=== PATIENT | female | born 1990 | race Caucasian/White ===

== ENCOUNTER 2023-07-19 11:50 | Emergency (ER) | payer OTHER, SELFPAY ==
[2023-07-19 12:02] VITALS: BP 100/61; PULSE 96; RESP 18; TEMP 36.9; O2SAT 98
[2023-07-19 12:05] VITALS: BP 100/61; PULSE 96; RESP 18; TEMP 36.9; O2SAT 98
--- NOTE | 2023-07-19 12:16 | ED.URI ---
HPI - URI/Sore Throat General Chief Complaint: Upper Respiratory Infection Stated Complaint: Cold symptoms Time Seen by Provider: 07/19/23 12:10 Source: patient and RN notes reviewed Mode of arrival: ambulatory Limitations: no limitations History of Present Illness HPI Narrative: Patient presents today complaining of sore throat with white rhinorrhea since yesterday. Denies any additional symptoms to include fever, cough, congestion, shortness of breath, difficulty swallowing. She currently rates her pain 3/10 and has been taking ibuprofen with mild relief. Denies any known sick contacts. Related Data Allergies Allergy/AdvReac Type Severity Reaction Status Date / Time sulfamethoxazole Allergy Rash Verified 07/19/23 12:04 [From Bactrim] trimethoprim [From Bactrim] Allergy Rash Verified 07/19/23 12:04 Review of Systems Review of Systems: CONSTITUTIONAL: Denies body aches, fever, chills, or sweats. EYES: Denies visual changes, redness, or discharge. ENT: Denies congestion, or otalgia.+ rhinorrhea, sore throat CARDIOVASCULAR: Denies chest pain, palpitations, or edema. RESPIRATORY: Denies cough or dyspnea. GASTROINTESTINAL: Denies abdominal pain, nausea, vomiting, or diarrhea. GENITOURINARY: Denies dysuria or hematuria. SKIN: Denies rash, itching, or wounds. MUSCULOSKELETAL: Denies back pain, joint pain, or myalgia. NEUROLOGIC: Denies headache, numbness, tingling, or weakness. PSYCH: Denies depression or anxiety. PMFSH Comments At time of signature, I have reviewed and agree with nursing past medical, surgical, social and family history unless otherwise noted. Please see nursing chart for further information. There is no relevant family history pertinent to the presenting complaint Exam Narrative: GENERAL: Well-appearing, well-nourished, and in no acute distress. HEAD: Normocephalic, atraumatic. EYES: EOMI. No redness or drainage. Conjunctivae normal. ENT: Mucous membranes pink and moist. Nares clear. No rhinorrhea. TMs normal bilaterally. Throat erythematous with mild edema. No exudate. Uvula midline. NECK: Normal AROM. Supple. No lymphadenopathy. CHEST: No respiratory distress. Clear to auscultation. HEART: Regular rate and rhythm. No murmur appreciated. EXTREMITIES: Normal range of motion. No edema. SKIN: Warm, dry, no rash. Capillary refill normal. Normal skin turgor. NEURO: No focal deficits. Alert and oriented x3. Gait steady. PSYCH: Normal affect. No signs of depression or anxiety. Course Course Level of Care: Express Care Visit Vital Signs Vital signs: Vital Signs Temperature 98.4 F 07/19/23 12:02 Pulse Rate 96 07/19/23 12:02 Respiratory Rate 18 07/19/23 12:02 Blood Pressure 100/61 07/19/23 12:02 Pulse Oximetry 98 07/19/23 12:02 Oxygen Delivery Room Air 07/19/23 12:02 Temperature 98.4 F 07/19/23 12:05 Pulse Rate 96 07/19/23 12:05 Respiratory Rate 18 07/19/23 12:05 Blood Pressure 100/61 07/19/23 12:05 Pulse Oximetry 98 07/19/23 12:05 Oxygen Delivery Room Air 07/19/23 12:05 Reviewed MDM - URI/Sore Throat MDM Narrative Medical decision making narrative: Rapid strep positive. Prescription for amoxicillin sent to pharmacy. Anticipatory guidance given. Differential Diagnosis Differential diagnosis: Likely upper respiratory infection, viral infection, pharyngitis and other (Strep throat) Lab Data Attestation: I reviewed the patient's lab results. Lab results narrative: Rapid strep positive Critical Care Time Critical Care Time Critical Care Time: No Discharge Plan Discharge Clinical Impression: Strep throat Patient Disposition: Home, Self-Care Condition: Stable Instructions: Antibiotic Form, Strep Throat (DC) Additional Instructions: You have tested positive for strep throat. Please take the amoxicillin as prescribed until gone. You will be contagious for 24 hours after starting the antibiotic. Take Tyleno
== END 2023-07-19 12:22 | disposition home or self-care (01) ==
PROVIDERS: Emergency Provider Nurse Practitioner; PCP Hospitalist
DX: J02.0 Streptococcal pharyngitis (principal)
CPT/HCPCS: 87880; 99213; G0463

== ENCOUNTER 2024-08-21 10:09 | Emergency (ER) | payer OTHER, BC, SELFPAY ==
[2024-08-21 10:24] VITALS: BP 117/56; PULSE 82; RESP 18; TEMP 37.2; O2SAT 97
--- NOTE | 2024-08-21 10:27 | ED.URI ---
HPI - URI/Sore Throat General Chief Complaint: Upper Respiratory Infection Stated Complaint: cough Source: patient Mode of arrival: ambulatory Limitations: no limitations History of Present Illness HPI Narrative: 33-year-old female presented for complaint of productive cough for 2 months. Endorses nasal congestion and drainage. That she has completed 2 telehealth visits, during which she was prescribed Tessalon Perles, albuterol inhaler, and ipratropium nasal spray. She has been taking [id number] DayQuil and NyQuil and Delsym. Patient denies shortness of breath, wheezing, nausea, vomiting, diarrhea, fevers or lethargy. Related Data Home Medications ?Medication ?Instructions ?Recorded ?Confirmed ?Last Taken ?Type albuterol sulfate 90 mcg/actuation inhalation 08/21/24 Unknown History aerosol inhaler benzonatate 200 mg capsule mg PO 08/21/24 Unknown History ipratropium bromide 42 mcg (0.06 intranasal 08/21/24 Unknown History %) nasal spray norethindrone (contraceptive) 0.35 mg 08/21/24 Unknown History mg tablet Allergies Allergy/AdvReac Type Severity Reaction Status Date / Time sulfamethoxazole (From Allergy Rash Verified 08/21/24 10:33 Bactrim) trimethoprim (From Bactrim) Allergy Rash Verified 08/21/24 10:33 Review of Systems Review of Systems: CONSTITUTIONAL: Denies body aches, fever, chills, or sweats. EYES: Denies visual changes, redness, or discharge. ENT: Denies rhinorrhea, congestion, sore throat, or otalgia. CARDIOVASCULAR: Denies chest pain, palpitations, or edema. RESPIRATORY: Reports cough, denies sob, wheezing. GASTROINTESTINAL: Denies abdominal pain, nausea, vomiting, or diarrhea. SKIN: Denies rash, itching, or wounds. MUSCULOSKELETAL: Denies back pain, joint pain, or myalgia. NEUROLOGIC: Denies headache, numbness, tingling, or weakness. PSYCH: Denies depression or anxiety. All systems reviewed & are unremarkable except as noted in HPI and below [facility] Comments At time of signature, I have reviewed and agree with nursing past medical, surgical, social and family history unless otherwise noted. Please see nursing chart for further information. There is no relevant family history pertinent to the presenting complaint Exam Narrative: GENERAL: Well-appearing, in no acute distress. EYES: EOMI. No redness or drainage. Conjunctivae normal. ENT: Mucous membranes pink and moist. No rhinorrhea. TMs normal bilaterally with clear effusion. Throat normal. Uvula midline. NECK: Normal AROM. Supple. CHEST: No respiratory distress. Lungs clear to all angel. HEART: Regular rate and rhythm. No murmur appreciated. SKIN: Warm, dry, no rash. Capillary refill normal. Normal skin turgor. NEURO: Alert and oriented x3. Gait steady. PSYCH: Normal affect. Course Course Emergency Course: Patient is aware of diagnosis, understands and agrees to treatment plan. Anticipatory guidance given. Patient agrees to follow-up as directed and is aware of reasons to seek care at the emergency department. Portions of this record may have been created with voice recognition software Level of Care: Express Care Visit Vital Signs Vital signs: Vital Signs Temperature 98.9 F 08/21/24 10:24 Pulse Rate 82 08/21/24 10:24 Respiratory Rate 18 08/21/24 10:24 Blood Pressure 117/56 L 08/21/24 10:24 Pulse Oximetry 97 08/21/24 10:24 Oxygen Delivery Room Air 08/21/24 10:24 Temperature 98.9 F 08/21/24 10:24 Pulse Rate 82 08/21/24 10:24 Respiratory Rate 18 08/21/24 10:24 Blood Pressure 117/56 L 08/21/24 10:24 Pulse Oximetry 97 08/21/24 10:24 Oxygen Delivery Room Air 08/21/24 10:24 MDM - URI/Sore Throat MDM Narrative Medical decision making narrative: Discussed physical exam findings. Patient declines chest x-ray at this time. Reviewed prescription. She will continue the previously prescribed inhaler and Tessalon Perles. Advised supportive measures and signs/symptoms to go to the ER. Pt is appropriate for outpt treatment and f/u. Differential Diagnosis Differential diagnosis: Likely upper respiratory infection, sinusitis, viral infection, bronchitis, pharyngitis and other (Angioedema, perforation, asthma, pneumonia, PE, tension pneumothorax, cardiac tamponade DC, pericarditis, pleural effusion, CHF, bronchitis, cardiac arrhythmia) Discharge Plan Discharge Clinical Impression: Bronchitis Patient Disposition: Home Condition: Stable Instructions: Antibiotic Form, Acute Bronchitis (ED) Additional Instructions: Take medication as directed Recommendations: Flonase spray and Zyrtec (or Claritin/Devora) if you have nasal congestion over the counter Cough syrup may cause drowsiness; avoid driving or take it at night time. Tylenol every 8 hours as needed for pain Symptomatic treatment includes: rest, fluids, and increase humidity of the air at home. Follow up with your primary care provider as needed in 1 week Go to the ER for worsening symptoms or concerns Patient Language: Estonian Prescriptions: New amoxicillin-pot clavulanate 875-125 mg tablet 1 tablet PO Q12H 7 Days Qty: 14 0RF No Action benzonatate 200 mg capsule PO albuterol sulfate 90 mcg/actuation HFA aerosol inhaler INHALATION ipratropium bromide 42 mcg (0.06 %) spray,non-aerosol INTRANASAL norethindrone (contraceptive) 0.35 mg tablet Follow-up/Referrals: Melissa,Masoud James Jr., MD [Primary Care Provider] - Time of Disposition: 10:37
--- OUTSIDE RECORDS SUMMARY | 2024-08-21 10:52 | XMS_ITS | Data Portability ---
Author Organization [facility] [employer] , [facility] Address [address] [place] [address] Assessment Encounter Date Assessment Date Assessment LastModified by Organization Details LastModified Time 08/13/2024 08/13/2024 Ddx: Acute Bronchitis, Chronic Bronchitis, Cough, Bronchospasm A: Acute bronchitis/broncho spasms determined to be the etiology of current respiratory symptoms. Patient without symptoms suggestive of bacterial etiology at this time. P: Provided counseling/treatme nt recommendations as noted below: Monitor for fever, SOB, wheezing, worsening breathing difficulty Medications prescribed: See Rx section Drug interactions: None If any medications were discussed (either prescription or uhsg-dik-ldrahbo), please review any potential side effects before taking the medication. If your symptoms get worse or do not improve, please call us back or seek in person care. We are available 25/09 OTC meds recommended: antihistamine to help dry up postnasal drip Antibiotic stewardship education Patient to be seen for repeat evaluation if symptoms worsen, counseled on red flag symptoms to indicate need for emergent follow up. Patient expressed understanding and agreement with treatment plan as outlined. [email or web address] Not available 08/13/2024 18:32:45 08/17/2024 08/17/2024 Ddx: Viral URI, Acute Bronchitis, Influenza, ABRS, COVID-19 A: Symptoms consistent with lower respiratory infection. Unable to rule out a bacterial etiology at this time. Advised to go to the nearest urgent care. P: Discussed expected course of viral URIs. Provided counseling/treatme nt recommendations as noted below: Go to the nearest urgent care for further work up and evaluation. Not available 08/17/2024 20:35:09 Plan of Treatment Reminders Order Date Submit Date Provider Last Modified By Organization Details Last Modified Time Details Appointments None recorded. Lab None recorded. Referral None recorded. Procedures None recorded. Surgeries None recorded. Imaging None recorded. Medication Orders albuterol sulfate HFA 90 mcg/actuati on aerosol inhaler 2024 [facility][id number], [address], [place], [place], [phone], 18:28:19 ipratropium bromide 42 mcg (0.06 %) nasal spray 2024 [facility] #[id number], [address], [place], [place], [phone], 18:29:34 benzonatate 200 mg capsule 2024 [facility] #[id number], [address], [place], [place], [phone], 18:29:53 Patient TargetsNo targets recorded. Patient Instructions Encounter Date Encounter Id Patient Instructions Last Modified By Organization Details Last Modified Time 08/13/2024 [id number] reactive airway disease: care instructions [email or web address] Not available 08/13/2024 18:28:08 bronchitis: care instructions [email or web address] Not available 08/13/2024 18:29:23 08/17/2024 [id number] [facility] work up and evaluation. Not available 08/17/2024 20:35:17 Reason for Referral None Reported. Problems No Known Problems Medical Equipment None Reported. Allergies Allergen ID Allergen Name Allergen Category Reaction Reaction Severity Criticality Documentation Date Start Date Code Code System Note Provider Name and Address Organization Details Recorded Time 603611 Bactrim medicatio n Not available Not available Not available 08/13/2024 [id number] RxNorm Not Available Included [facility] - [facility] 18:18:50 Medications Name Sig Start Date Stop Date Status Note LastModified by Organization Details LastModified Time benzonatat e 200 mg capsule Take 1 capsule 3 times a day by oral route as needed for 10 days, for cough. 2024 active NOT RECOMMEND ED in patient's less than 10 years of age Not Available Not Available Not Available albuterol sulfate HFA 90 mcg/actuat ion aerosol inhaler Inhale 2 puffs every 4-6 hours by inhalatio n route for 30 days. 2024 active Not Available Not Available Not Avai lable ipratropiu m bromide 42 mcg (0.06 %) nasal spray [place] 2 sprays twice a day by intranasa l route for 30 days. 2024 active Not Available Not Available Not Avai lable norethindr one active ADDED BY PATIENT: Not Available Not Available Not Available Vitals Date Recorded Body height Body mass index (BMI) Body weight Provider Name and Address Organization Details Last Updated DateTime 08/17/2024 162.56 cm 24.5 kg/m2 19612.71 g CHRIS Moise [address] [facility] [address], [place], [address], [place] - Included [facility] 08/17/2024 20:26:48 Social History None recorded. Functional Status Question Answer Note LastModified by Organizat ion Details LastModified Time How many times per week do you consume alcohol? Less than 1 time per week Information not available 08/13/2024 Do you use any illicit or recreational drugs? No Information not available 08/13/2024 Do you or have you ever used any other forms of tobacco or nicotine? No Information not available 08/13/2024 What is your level of alcohol consumption? Occasional Information not available 08/13/2024 Mental Status None recorded. Family History Nothing Reported. Medical History No medical history recorded. Gynecological HistoryNo gynecological history recorded. Obstetrics History GPAL:G 0 P 0 0 0 0 Past Encounters Encounter ID Performer Location Encounter Start Date Encounter Closed Date Diagnosis/Indication Diagnosis SNOMED-CT Code Diagnosis ICD10 Code Diagnosis Note [id number] CHRIS Menendez [facility] [address] [place] [address] 08/13/2024 18:19:50 08/13/2024 18:34:58 Bronchospasm 5667669 J98.01 Bronchitis 00917348 J40 [id number] CHRIS Moise [facility] [address] [place] [address] 08/17/2024 20:20:54 08/17/2024 20:36:58 Acute lower respiratory tract infection 219810110 J22 Health Concerns Section Related Observation LastModified by Organization Detai ls LastModified Time None Recorded Concern Status LastModified by Organization Details LastModified Time None Recorded Advance Directives Directive None Recorded Payers Insurance Date Sequence Insurance Name Policy Number Policy Nguyễn Covered Member ID Nguyễn Member ID Guarantor Name 08/13/2024 1 *SELF PAY* Jessi Grayson 08/18/2024 2 [facility] [id number] Hair Grayson [id number] Hair Grayson 08/13/2024 [employer] [id number] Hair Grayson [id number] Hair Grayson 08/13/2024 3 *SELF PAY* [id number] Hair Grayson [id number] Hair Grayson 08/18/2024 1 [facility] [id number] Hair Grayson [id number] Hair Grayson Notes Date Note Type Note Provider Name and Address Organization Details Recorded Time 08/13/2024 text/html Provider at the time of the visit is physically in the state of [place] Call connected, patient greeted. Patient name, , telephone number and location verified verbally with the patient. Telemedicine limitations reviewed, answered all questions the patient had about the telehealth interaction, and verbal consent obtained to treat.Pt is at home address listed in the chart at the time of the televisit.Pt consents to AI Clinical Scribe use for this televisit. Age & Gender: 33 y.o. Female CC: Persistent cough for one month HPI: The patient presents with a one-month history of a persistent productive cough, which started following what is believed to be a viral infection. The cough is most severe overnight into the morning and improves somewhat throughout the day. The patient reports no fever, malaise, fatigue, or headaches. Nasal congestion and post-nasal drip are minimal, but present. The patient denies any pain in the ears or sinuses and reports no previous diagnosis of chronic lung conditions such as asthma. A similar episode occurred last year following a viral infection and was treated as atypical pneumonia with Z-Nicholas, which resulted in improvement. Initially, the patient attempted to manage symptoms with tolb-get-fhvpnjl Delsym cough syrup and Afrin nasal spray, which were somewhat effective at alleviating congestion. The patient experiences increased coughing with activity such as movement and talking. CHRIS Menendez 1 [facility] [address] [place] [address], [phone], [facility] - Included [facility] 08/13/2024 18:32:48 08/17/2024 text/html Call connected, patient greeted. Patient name , location, and phone number confirmed. Verbal consent obtained to treat this patient via the telemedicine/video platform. Patient understands that there are limitations to my evaluation. Clinician attests that the clinician is physically located in the following state at the time of visit: [place] Onset and duration of symptoms: The patient reports that she has been experiencing a cough that started about a month ago. She states that she has been using an albuterol inhaler, Delsym, and ipratropium bromide. Symptoms:Fever (Tmax): NoNasal congestion: YesNasal discharge: YesPost nasal drip: YesCough: Yes- Productive with a Green CoughSore throat: NoEar pain/pressure: NoHeadache: YesChest pain: NoShortness of breath: NoWheezing: NoAdditional symptoms: OTC medications used: NoneRecent antibiotic use: NoRecent influenza: NoHistory of allergies, asthma, seasonal/allergic rhinitis: NoIf YES, medications used:History of past URIs, bronchitis, pneumonia: YesHistory of COPD: NoHistory of immunocompromise: NoHistory of COVID-19: UnsureKnown sick contacts: YesTobacco use / e-cig / vaping: No CHRIS Moise 1 [facility] [address], [place], [address], [facility] - Included [employer] 08/17/2024 20:35:36 OBGyn Episode No OBEpisode recorded.
--- OUTSIDE RECORDS SUMMARY | 2024-08-21 10:52 | XMS_ITS | Referral Summary ---
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 Local care instructions were given. Patient can follow back up as needed. Assessment & Plan (12/14/2017 12:45 PM CDT): Patient demonstrates a benign-appearing mucocele along the inner aspects of the right lower lip. It is chronic in nature. Definitive treatment consists of excisional biopsy. All questions were answered to what appeared to be patient's understanding and satisfaction. After the procedure was explained in full the potential risk, complications, benefits and alternatives patient would like to proceed. Patient will be scheduled in a timely fashion. Immunizations Immunization Administration Dates Next Due DTaP 5 Pertussis 09/12/2006 HPV, Quadrivalent 05/08/2007,10/17/2006,09/13/19 07 Hep B Vaccine 10/17/1993,1991,1991 Influenza, Trivalent, IM (MDV) 12/03/2017,2012 Influenza, Unspecified 12/12/2022,12/19/2019,03/2017,02/02/2013 MMR 10/23/1997,12/09/1992 Meningococcal MCV4P (Menactra) 09/23/2015 Tdap 05/15/2016,09/12/2006 Social History Tobacco Use Types Packs/Day Years Used Date Smoking Tobacco: Never Smokeless Tobacco: Never Alcohol Use Standard Drinks/Week Comments No 0 (1 standard drink = 0.6 oz pur e alcohol) AUDIT-C Answer Date Recorded Frequency of Alcohol Consumption Not on file 02/05/2023 Q2: How many drinks containi ng alcohol do you have on a typical day when you are drinking? Patient does not drink Frequency of Binge Drinking Not on file 06/2022 PHQ-2 Answer Date Recorded PHQ-2 Total Score (If total score is 3 or more points, staff should administer the PHQ-9) 0 02/05/2023 Comments No Sex and Gender Information Value Date Recorded Sex Assigned at Not on file Legal Sex Female 3:58 AM B[employer] SERVICE TEAM MEMBER Gender Identity Not on file Sexual Orientation Not on file Last Filed Vital Signs Vital Sign Reading Time Taken Comments Blood Pressure 100/64 02/05/2023 8:08 AM BODY SERVICE TEAM MEMBER Pulse 74 02/05/2023 8:08 AM BODY SERVICE TEAM MEMBER Temperature 36.6 C (97.9 F) 02/05/2023 8:08 AM BODY SERVICE TEAM MEMBER Respiratory Rate 16 02/05/2023 8:08 AM BODY SERVICE TEAM MEMBER Oxygen Saturation 97% 02/05/2023 8:08 AM BODY SERVICE TEAM MEMBER Inhaled Oxygen Concentration - - Weight 64 kg (141 lb) 02/05/2023 8:08 AM BODY SERVICE TEAM MEMBER Height 162.6 cm (5' 4) 02/05/2023 8:08 AM BODY SERVICE TEAM MEMBER Body Mass Index 24.2 02/05/2023 8:08 AM BODY SERVICE TEAM MEMBER Plan of Treatment Not on file Insurance [facility] CHOICE PLUS [facility] CHOICE PLUS Care Teams Compliance Analyst Relationship Specialty Start Date End Date Masoud Torres Jr., MD [address] [place] [id number] PCP - General Internal Medicine 02/05/23
--- OUTSIDE RECORDS SUMMARY | 2024-08-21 10:52 | XMS_ITS | Clinical Summary ---
Author Organization [facility] Address [address] [place] [address] Phone Care Team Providers Care Concrete Foreman Name Role Phone Stephanie Coelho MD Primary Care Provider [phone] Allergies Active Allergy Reactions Criticality Noted Date Comments Sulfamethoxazole-Trimethoprim Rash Low 2023 Medications vit-iron fumarate-fa (DIYA ) 28 mg iron- 800 mcg Tablet Take 1 Tablet by mouth daily. Active ondansetron (ZOFRAN ODT) 4 mg Tablet, Rapid Dissolve Place 1 Tablet (4 mg) under tongue every 6 hours as needed for Nausea/Emesis. Dissolve tablet on top of tongue, then swallow with saliva. 90 Tablet 1 4 Active Additional Information Patient not taking.Reported on 05/07/2024 metoclopramide HCl (REGLAN) 5 mg tablet Take 5 mg by mouth 4 times daily before meals and at bedtime. Active melatonin 5 mg Tablet Take 5 mg by mouth 1 time daily as needed. Active pantoprazole (Protonix) 20 mg Tablet, Delayed Release (E.C.)Indication s:Gastroesophage al reflux disease without esophagitis Take 1 Tablet (20 mg) by mouth daily. 30 Tablet 5 Active Additional Information Patient not taking.Reported on 05/07/2024 norethindrone, Contraceptive, (Destini-BE) 0.35 mg TabletIndication s:Contraceptive education Take 1 Tablet by mouth daily. 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 Overview (08/02/2023): Last Assessment & Plan: Needs ENT Encounters Date Type Department Care Team Description 08/20/2024 External Device Data [facility] ABSTRACTION Provider, Abstract 08/05/2024 External Device Data [facility] ABSTRACTION Provider, Abstract 07/24/2024 External Device Data [facility] ABSTRACTION Provider, Abstract 07/24/2024 External Device Data [facility]STRACTION Provider, Abstract 07/24/2024 External Device Data [facility]STRACTION Provider, Abstract 07/08/2024 External Device Data [facility]STRACTION Provider, Abstract 07/08/2024 External Device Data [facility] Provider, Abstract 07/08/2024 External Device Data [facility]STRACTION Provider, Abstract 06/24/2024 External Device Data [facility]STRACTION Provider, Abstract 06/03/2024 External Device Data [facility]STRACTION Provider, Abstract 06/03/2024 External Device Data [facility]STRACTION Provider, Abstract 05/21/2024 External Device Data [facility]STRACTION Provider, Abstract from Last 3 Months Immunizations Immunization Administration Dates Next Due (ABRYSVO)(60 YR UP/GA 32-36 WKS) RSV, BIVALENT, PROTEIN SUBUNIT RSVPREF, DILUENT RECONSTITUTED, 0.5 ML, PF 02/04/2024 (ADACEL/BOOSTRIX)(10 YR UP) TDAP VACCINE, 0.5ML, IM 01/11/2024,05/15/2016,09/12/2006 (DAPTACEL)(6 WKS-6 YRS) DIPH THERIA, TETANUS TOXOIDS, AND ACCELLULAR PERTUSSIS VACCINE (DTAP), 0.5ML, IM 09/12/2006 (GARDASIL)(9-45 YRS) HUMAN P APILLOMAVIRUS VACCINE, TYPES 6, 11, 16, 18, QUADRIVALENT (4VHPV), 3 DOSE, IM 05/08/2007,10/17/2006,09/12/2006 (M-M-R II/PRIORIX)(12 MO UP) MEASLES, MUMPS AND RUBELLA VIRUS VACCINE, 0.5 ML IM/SUBCUT 10/23/1997,12/09/1992 Hepatitis B Vaccine 10/17/1993,1991,1991 INFLUENZA VACCINE TRIVALENT MDCK, (6 MOS UP), 0.5ML (PF), IM 11/12/2023 Influenza Seasonal Unspecifi ed Formulation IM 12/03/2017,02/02/2013 Influenza, Unspecified Formulation 12/19/2019,,02/02/2013 Meningococcal Polysaccharide Vaccine SQ 09/23/19 16 Family History Medical History Relation Name Comments Cancer Father Damian skin Hypertension Father Damian Thyroid Disease Father Damian hypothyroid Heart Disease Maternal Grandfather Luis Heart Disease Maternal Grandmother Gladis Stroke Maternal Grandmother Gladis Migraines Mother Fanta Cancer Paternal Grandfather Jose Alfredo lung ca 2/2 tobacco use Depression Paternal Grandfather Jose Alfredo Heart Disease Paternal Grandfather Jose Alfredo Hypertension Paternal Grandfather Jose Alfredo Depression Paternal Grandmother Macrina Heart Disease Paternal Grandmother Macrina Hypertension Paternal Grandmother Macrina Lung Cancer Paternal Grandmother Macrina Relation Name Status Comments Father Damian Alive Maternal Grandfather Luis Maternal Grandmother Gladis Mother Fanta Alive Paternal Grandfather Jose Alfredo Paternal Grandmother Macrina Social History Tobacco Use Types Packs/Day Years Used Date Smoking Tobacco: Never Smokeless Tobacco: Never Tobacco Cessation:Counseling Given: Not Answered Alcohol Use Standard Drinks/Week Comments Not Currently 2 (1 standard drink = 0.6 oz pur e alcohol) rare Feeling Safe Answer Date Recorded Are you in a relationship wi th someone who hurts you emotionally and/or physically? 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 student Not on file Not on file Not on file Last Filed Vital Signs Vital Sign Reading Time Taken Comments Blood Pressure 108/72 05/07/2024 11:16 AM SCRUB WHEEL OPERATOR Pulse 74 03/27/2024 6:56 AM SCRUB WHEEL OPERATOR Temperature 36.7 C (98 F) 03/27/2024 6:56 AM SCRUB WHEEL OPERATOR Respiratory Rate 18 03/27/2024 6:56 AM SCRUB WHEEL OPERATOR Oxygen Saturation 99% 03/27/2024 6:56 AM SCRUB WHEEL OPERATOR Inhaled Oxygen Concentration - - Weight 68 kg (150 lb) 05/07/2024 11:16 AM SCRUB WHEEL OPERATOR Height 162.6 cm (5' 4) 05/07/2024 11:16 AM SCRUB WHEEL OPERATOR Body Mass Index 25.75 05/07/2024 11:16 AM SCRUB WHEEL OPERATOR Plan of Treatment Upcoming Encounters Date Type Department Care Team (Late st Contact Info) Description 10/02/2024 10:30 AM CDT Office Visit [facility] [address] [address] Tamara Bond MD [address] [place] [id number] Health Maintenance Due Date Last Done Comments COVID-19 Vaccine (2023-2 5 season) 2023 03/12/2020, 02/20/2020 PAP SMEAR 05/08/2027 05/07/2024, 11/03, 06/18/2020, Additional history exists CERVICAL CANCER SCREENING 05/07/2029 HPV/Cotest (21-29) 05/07/2029 05/07/2024, 0 11/13/2022, 08/22/2016, Additional history exists HPV/Cotest (30-65) 05/07/2029 05/07/2024, 0 11/13/2022, 08/22/2016, Additional history exists DTAP/TDAP/TD VACCINES (4 - T d or Tdap) 01/10/2034 01/11/2024, 05/15/2016, 09/12/2006, Additional history exists HEPATITIS B VACCINES Completed 10/17/1993, 1991, 1991 HPV VACCINES Completed 05/08/2007, 10/03, 09/12/2006, Additional history exists INFLUENZA VACCINE Completed 11/12/2023, , 12/03/2017, Additional history exists Procedures Procedure Name Priority Date/Time Associated Diagnosis Comments CERV/VAG CYTO AGE BASED SCREEN PAP Routine 05/07/2024 11:41 AM SCRUB WHEEL OPERATOR Screening for cervical cancer Screening for HPV (human papillomavirus) from Last 3 Months or Most Recently Relevant to Health Maintenance Results * CERV/VAG CYTO AGE BASED SCREEN PAP (05/07/2024 11:41 AM SCRUB WHEEL OPERATOR) COMMENT (PAP): [facility] [place] Comment: This order for age-based cervical cancer and STI screening follows ACOG guidelines(PB 168, 140, SGV543). See individual assays for performing site location. CLINICAL INFORMATION [facility] [place] Comment:None given LAST MENSTRUAL PERIOD [facility] [place] Comment:NONE GIVEN PREV PAP: [facility] [place] Comment:NONE GIVEN PREV BX: [facility] [place] Comment:NONE GIVEN SOURCE [facility] [place] Comment:Endocervix ADEQUACY: [facility] [place] Comment: Satisfactory for evaluation. Endocervical/transformation zone component present. Age and/or menstrual status not provided PAP INTERP [facility] [place] Comment: Cytology Results: Negative for intraepithelial lesion or malignancy. COMMENT (PAP TEST) [facility] [place] Comment: This Pap test has been evaluated with computer assisted technology. RULES EXAMINER: Kendy Portillo Comment: LMT, CT(ASCP) CT screening location: [place] [address] [address] [place] [address] REVIEW RULES EXAMINER: Michael Portillo Comment: MVB, CT(ASCP) CT Screening Location: [place] [address] [address] [place] [address] EXPLANATORY NOTE [facility] [place] Comment: EXPLANATORY NOTE: The Pap is a screening test for cervical cancer. It is not a diagnostic test and is subject to false negative and false positive results. It is most reliable when a satisfactory sample, regularly obtained, is submitted with relevant clinical findings and history, and when the Pap result is evaluated along with historic and current clinical information. HPV E6/E7 Not Detected Not Detected [employer] Comment: Methodology: Signal Repairer-Mediated Amplification This assay detects E6/E7 viral messenger RNA (mRNA) from 14 high-risk HPV types (16,18,31,33,35,39,45,51,52,56,58,59,66,68). Cervical sources are required for HPV testing. If a vaginal source from a patient who has had a total hysterectomy with removal of cervix was submitted, please contact the testing laboratory for alternative testing options. For additional information, please refer to http://education.Viblio/faq/PWG429k9 (This link if provided for information/ educational purposes only.) Test Performed at: [facility] [address] [place] [address] [facility] SWAB OF ENDOCERVIX / Unknown 05/07/2024 11:41 AM SCRUB WHEEL OPERATOR 05/08/2024 1:15 AM SCRUB WHEEL OPERATOR Brian Ron MD PATHOLOGY/CYTOLOGY ORDERABLES Final Result [facility] [phone] [facility] [address] [place] [address] from Last 3 Months or Most Recently Relevant to Health Maintenance Insurance [facility] [id number] RX [employer] RX Member Subscriber Plan / Payer (Ef fective 2024-Present) Name:Shonda Grayson Relation to Subscriber:Not on file Name:Shonda Grayson Subscriber ID:Not on file Date of :1990 Payer ID:Not on file Group ID:[id number] Type:RX Commercial Address: [address] Advance Directives For more information, please contact: [phone] * Full Code (Latest Code Status on File) Date Activated Date Inactivated Comments 03/25/2024 6:04 AM 03/27/2024 4:39 PM * Full Code Date Activated Date Inactivated Comments 03/24/2024 4:21 PM 03/25/2024 6:03 AM * Full Code Date Activated Date Inactivated Comments 02/15/2024 2:36 PM 02/15/2024 6:35 PM * Full Code Date Activated Date Inactivated Comments 12/26/2023 4:38 AM 12/26/2023 10:24 AM Care Teams Concrete Foreman Relationship Specialty Start Date End Date Stephanie Coelho MD PCP - General Internal Medicine 05/06/13
--- OUTSIDE RECORDS SUMMARY | 2024-08-21 10:52 | XMS_ITS | Encounter Summary ---
Author Organization [facility] Address [address] [place] [address] Care Team Providers Care Retail Sales Representative Name Role Phone Stephanie Coelho MD Primary Care Provider [phone] Encounter Details Date Type Department Care Team (Late st Contact Info) Description 08/20/2024 External Device Data [facility] ABSTRACTION Provider, Abstract NO ADDRESS ON FILE Social History Tobacco Use Types Packs/Day Years Used Date Smoking Tobacco: Never Smokeless Tobacco: Never Alcohol Use Standard Drinks/Week Comments Not Currently [...] file Not on file Not on file documented as of this encounter Plan of Treatment Upcoming Encounters Date Type Department Care Team (Late st Contact Info) Description 10/02/2024 10:30 AM CDT Office Visit [facility] [address] [place] [address] Tamara Bond MD [address] [place] [phone] documented as of this encounter Visit Diagnoses Not on filedocumented in this encounter Care Teams Retail Sales Representative Relationship Specialty Start Date End Date Stephanie Coelho MD PCP - General Internal Medicine 05/06/13 documented as of this encounter
--- OUTSIDE RECORDS SUMMARY | 2024-08-21 10:52 | XMS_ITS | Clinical Summary ---
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 Local care [...] 10/23/1997,12/09/1992 Meningococcal MCV4P (Menactra) 09/23/2015 Tdap 05/15/2016,09/12/2006 Medical History Medical History Date Comments Cyst of salivary gland Family History Medical History Relation Name Comments Glaucoma Father Family history of glaucoma - (Added by TW Conv) Hyperlipidemia Father High choleste rol - (Added by TW Conv) Hypertension Father Family history of hypertension - (Added by TW Conv) Hypothyroidism Father Family histor y of hypothyroidism - (Added by TW Conv) Skin cancer Father Family history of skin cancer - (Added by TW Conv) Glaucoma Mother Family history of glaucoma - (Added by TW Conv) Hyperlipidemia Mother High choleste rol - (Added by TW Conv) Hypertension Mother Family history of hypertension - (Added by TW Conv) Hypothyroidism Mother Family histor y of hypothyroidism - (Added by TW Conv) Irritable bowel syndrome Mother Fam raman history of irritable bowel syndrome - (Added by TW Conv) Skin cancer Mother Family history of skin cancer - (Added by TW Conv) Glaucoma Sister Family history of glaucoma - (Added by TW Conv) Relation Name Status Comments Father Alive Mother Alive Sister Social History Tobacco Use Types Packs/Day Years [...] you are drinking? Patient does not drink 3 Frequency of Binge Drinking Not on file 06/2022 PHQ-2 Answer Date Recorded PHQ-2 Total Score (If total score is 3 or more points, staff should administer the PHQ-9) 0 02/05/2023 Comments No Sex and Gender Information Value Date Recorded Sex Assigned at Not on file Legal Sex Female 3:58 AM TRANSPORT MANAGER Gender Identity Not on file Sexual Orientation Not on file Obstetrics History Last Filed Vital Signs Vital Sign Reading Time Taken Comments Blood Pressure 100/64 02/05/2023 8:08 AM TRANSPORT MANAGER Pulse 74 02/05/2023 8:08 AM TRANSPORT MANAGER Temperature 36.6 C (97.9 F) 02/05/2023 8:08 AM TRANSPORT MANAGER Respiratory Rate 16 02/05/2023 8:08 AM TRANSPORT MANAGER Oxygen Saturation 97% 02/05/2023 8:08 AM TRANSPORT MANAGER Inhaled Oxygen Concentration - - Weight 64 kg (141 lb) 02/05/2023 8:08 AM TRANSPORT MANAGER Height 162.6 cm (5' 4) 02/05/2023 8:08 AM TRANSPORT MANAGER Body Mass Index 24.2 02/05/2023 8:08 AM TRANSPORT MANAGER Plan of Treatment Health Maintenance Due Date Last Done Comments Cervical Cancer Screening 1990 Hepatitis C Screening 1990 Covid-19 Vaccine ( season) 2023 03/12/2020, 02/20/2020 Depression Screening 02/06/2024 02/05/2023 Regular Well Visit/Exam 18-64 02/06/2024 02/05/2023 Influenza Vaccine (Season Ended) 2024 12/12/2022, 12/19/2019, 12/03/2017, Additional history exists DTaP/Tdap/Td Vaccine (4 - Td or Tdap) 05/15/2026 05/15/2016, 09/12/2006, 09/12/2006 Hepatitis B Screening Completed 10/17/1993 , 1991, 1991 HPV Vaccines Completed 05/08/2007, 10/03, 09/12/2006 Pneumococcal vaccine <65 Aged Out No longer eligible based on patient's age to complete this topic Varicella Vaccines Discontinued Insurance [facility] Address: [address] [address] [place] [address] [facility] [place]: [place] [address] Care Teams Straight Line Press Setter Relationship Specialty Start Date End Date Masoud Torres Jr., MD [address] [place] [id number] PCP - General Internal Medicine 02/05/23
== END 2024-08-21 10:25 | disposition home or self-care (01) ==
PROVIDERS: Emergency Provider Nurse Practitioner Family; PCP Hospitalist
DX: J40 Bronchitis, not specified as acute or chronic (principal)
CPT/HCPCS: 99213; G0463

== ENCOUNTER 2024-11-25 09:33 | Emergency (ER) | payer BC, OTHER, SELFPAY ==
[2024-11-25 09:38] VITALS: BP 105/64; PULSE 64; RESP 18; TEMP 36.3; O2SAT 99
--- NOTE | 2024-11-25 10:02 | ED_ITS ---
HPI - URI/Sore Throat General Chief Complaint: Upper Respiratory Infection Stated Complaint: Cough Time Seen by Provider: 11/25/24 09:50 Source: patient and RN notes reviewed Mode of arrival: ambulatory Limitations: no limitations History of Present Illness HPI Narrative: 34-year-old female presents Express Care complaining of upper respiratory symptoms and cough for the last 2-3 weeks. Patient reports productive cough, runny nose, congestion, nasal drainage. Patient denies any fevers, body aches, chills, sore throat, nausea, vomiting, chest pain, difficulty breathing, abdominal pain, diarrhea, or any other symptoms. Patient has been using [id number]-[id number] cold and flu medication without relief. Patient says symptoms have been persistent and not improving. Related Data Home Medications ?Medication ?Instructions ?Recorded ?Confirmed ?Last Taken ?Type norethindrone (contraceptive) 0.35 mg 08/21/24 Unknow n History mg tablet Allergies Allergy/AdvReac Type Severity Reaction Status Date / Time sulfamethoxazole (From Allergy Rash Verified 11/25/24 09:37 Bactrim) trimethoprim (From Bactrim) Allergy Rash Verified 11/25/24 09:37 Review of Systems Review of Systems: CONSTITUTIONAL: Denies fever, chills, or sweats. EYES: Denies visual changes, redness, or discharge. ENT: Positive for rhinorrhea, congestion. Negative for sore throat, or otalgia. CARDIOVASCULAR: Denies chest pain, palpitations, or edema. RESPIRATORY: Positive for cough. Negative for wheezing or Dyspnea. GASTROINTESTINAL: Denies abdominal pain, nausea, vomiting, or diarrhea. GENITOURINARY: Denies dysuria or hematuria. SKIN: Denies rash or itching. MUSCULOSKELETAL: Denies back pain, joint pain, or myalgia. NEUROLOGIC: Denies headache, numbness, or weakness. PSYCHIATRIC: Denies anxiety or depression. All other systems reviewed are negative, except as documented in HPI. PMFSH Comments At the time of my signature, I reviewed and agree with the nursing past medical, surgical, social, and family history. There is no relevant family history pertinent to the patient complaint. Exam Narrative: GENERAL: This is a well-nourished, well-developed adult, in no apparent distress. They are non ill-appearing, nontoxic appearing. HEAD: normocephalic, atraumatic. EYES: Sclera clear/white. Conjunctiva normal. Vision is grossly intact. Extraocular movements intact EARS: External ears normal, auditory canals clear and without drainage, TMs normal without perforation. Hearing grossly intact. NOSE: External nose normal with no obvious nasal discharge, nasal turbinates erythematous with exudate present., no rhinorrhea. THROAT: Mucous membranes moist, posterior pharynx boggy without erythema. Uvula midline. Postnasal drip present. NECK: Neck supple, non-tender without lymphadenopathy, masses or thyromegaly. CARDIOVASCULAR: Regular rate and rhythm without murmurs, gallops, or rubs. RESPIRATORY: Clear to auscultation. Breath sounds equal bilaterally. No wheezes, rales, or rhonchi. SKIN: warm, Dry, intact with no suspicious lesions or rash, good texture and turgor. NEURO: awake, alert, and oriented to person, place and time. There were no obvious focal neurologic abnormalities. EXTREMITIES: No joint tenderness, effusion, or edema noted. Course Course Emergency Course: Portions of this record may have been created with voice recognition software Level of Care: Express Care Visit Vital Signs Vital signs: Vital Signs Temperature 97.4 F L 11/25/24 09:38 Pulse Rate 64 11/25/24 09:38 Respiratory Rate 18 11/25/24 09:38 Blood Pressure 105/64 11/25/24 09:38 Pulse Oximetry 99 11/25/24 09:38 Oxygen Delivery Room Air 11/25/24 09:38 Temperature 97.4 F L 11/25/24 09:38 Pulse Rate 64 11/25/24 09:38 Respiratory Rate 18 11/25/24 09:38 Blood Pressure 105/64 11/25/24 09:38 Pulse Oximetry 99 11/25/24 09:38 Oxygen Delivery Room Air 11/25/24 09:38 Reviewed MDM - URI/Sore Throat MDM Narrative Medical decision making narrative: Given patient's length of symptoms likely she has developed a bacterial sinusitis. Will treat with Augmentin. Discussed physical exam findings. Advised supportive measures and signs/symptoms to go to the ER. Pt is appropriate for outpt treatment and f/u. Differential Diagnosis Differential diagnosis: Likely upper respiratory infection, sinusitis, viral infection and bronchitis Critical Care Time Critical Care Time Critical Care Time: No Discharge Plan Discharge Clinical Impression: Sinusitis Qualifiers: Sinusitis location: unspecified location Chronicity: acute Recurrence: non-re current Qualified Code(s): J01.90 - Acute sinusitis, unspecified Patient Disposition: Home Condition: Stable Instructions: Antibiotic Form, Sinusitis (ED) Additional Instructions: Take the antibiotics as directed and complete the course even if you start to feel better. You may use a Neti pot saline rinse 3 times a day with lukewarm distilled water Tylenol ibuprofen as needed for pain or fevers. You may take ibuprofen 600 mg to 800 mg every 6-8 hours. Do not exceed more than 800 mg of ibuprofen per dose. Do not exceed more than 3200 mg ibuprofen in a day. You may take up to 1000 mg Tylenol every 6-8 hours. Do not exceed 1000 mg per dose, do exceed more than 4000 mg of Tylenol in a day. Use a humidifier or vaporizer at night. Drink plenty of water. 8-10 glasses per day. Use flonase 2 times per day for 5 days then as needed Take mucinex 2 times per day and be sure to take with 8oz of water. Follow up with Primary provider in 3-5 days Please go to the ER if he develops any difficulty breathing, chest pains, nausea, vomiting, worsening symptoms, or any other concerns Patient Language: Vietnamese Prescriptions: New amoxicillin-pot clavulanate 875-125 mg tablet 1 tablet PO Q12H 7 Days Qty: 14 0RF No Action norethindrone (contraceptive) 0.35 mg tablet Follow-up/Referrals: Melissa,Masoud James Jr., MD [Primary Care Provider, Unknown] Time of Disposition: 09:57
--- OUTSIDE RECORDS SUMMARY | 2024-11-25 10:18 | XMS_ITS | Clinical Summary ---
Author Organization 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 Overview (08/02/2023): Last Assessment & Plan: Needs ENT Encounters Date Type Department Care Team Description 11/11/2024 External Device Data [facility] ABSTRACTION Provider, Abstract 11/04/2024 External Device Data [facility] ABSTRACTION Provider, Abstract 11/04/2024 External Device Data [facility]STRACTION Provider, Abstract 10/21/2024 External Device Data [facility]CTION Provider, Abstract 10/21/2024 External Device Data [facility]STRACTION Provider, Abstract 09/17/2024 External Device Data [facility] ABSTRACTION Provider, Abstract 08/26/2024 External Device Data [facility]STRACTION Provider, Abstract 08/26/2024 External Device Data [facility] ABSTRACTION Provider, Abstract 08/26/2024 External Device Data [facility] ABSTRACTION Provider, Abstract [...] Comments Blood Pressure 108/72 05/07/2024 11:16 AM MEDICAL DOCTOR NUCLEAR MEDICINE Pulse 74 03/27/2024 6:56 AM MEDICAL DOCTOR NUCLEAR MEDICINE Temperature 36.7 C (98 F) 03/27/2024 6:56 AM MEDICAL DOCTOR NUCLEAR MEDICINE Respiratory Rate 18 03/27/2024 6:56 AM MEDICAL DOCTOR NUCLEAR MEDICINE Oxygen Saturation 99% 03/27/2024 6:56 AM MEDICAL DOCTOR NUCLEAR MEDICINE Inhaled Oxygen Concentration - - Weight 68 kg (150 lb) 05/07/2024 11:16 AM MEDICAL DOCTOR NUCLEAR MEDICINE Height 162.6 cm (5' 4) 05/07/2024 11:16 AM MEDICAL DOCTOR NUCLEAR MEDICINE Body Mass Index 25.75 05/07/2024 11:16 AM MEDICAL DOCTOR NUCLEAR MEDICINE Plan of Treatment Health Maintenance Due Date Last Done Comments INFLUENZA VACCINE (#1) 2024 , 12/20/2022, 12/03/2017, Additional history exists COVID-19 Vaccine (2024-2 6 season) 2024 03/12/2020, 02/20/2020 PAP SMEAR 05/08/2027 05/07/2024, 11/03, [...] Completed 05/08/2007, 10/03, 09/12/2006, Additional history exists Procedures Procedure Name Priority Date/Time Associated Diagnosis Comments CERV/VAG CYTO AGE BASED SCREEN PAP Routine 05/07/2024 11:41 AM MEDICAL DOCTOR NUCLEAR MEDICINE Screening for cervical cancer Screening for HPV (human papillomavirus) from Last 3 Months or Most Recently Relevant to Health Maintenance Results * CERV/VAG CYTO AGE BASED SCREEN PAP (05/07/2024 11:41 AM MEDICAL DOCTOR NUCLEAR MEDICINE) COMMENT (PAP): [facility] [place] Comment: This order for age-based cervical cancer and STI screening follows ACOG guidelines(PB 168, 140, MBV347). See individual assays for performing site location. CLINICAL INFORMATION [facility] [place] Comment:None given LAST MENSTRUAL PERIOD [facility] [place] Comment:NONE GIVEN PREV PAP: [facility] [place] Comment:NONE GIVEN PREV BX: [facility] Comment:NONE GIVEN SOURCE [facility] [place] Comment:Endocervix ADEQUACY: [facility] Comment: Satisfactory for evaluation. Endocervical/transformation zone component present. Age and/or menstrual status not provided PAP INTERP [facility] [place] Comment: Cytology Results: Negative for intraepithelial lesion or malignancy. COMMENT (PAP TEST) [facility] Comment: This Pap test has been evaluated with computer assisted technology. FRAME ALIGNER: Qu est Laurence [place] Comment: LMT, CT(ASCP) CT screening location: [place] [address] [place] [address] REVIEW FRAME ALIGNER: [facility] [place] Comment: MVB, CT(ASCP) CT Screening Location: [place] [address] [place] [address] EXPLANATORY NOTE Que ihiji Laurence [place] Comment: EXPLANATORY NOTE: The Pap is a [...] information. HPV E6/E7 Not Detected Not Detected [facility] [place] Comment: Methodology: Cement Breaker-Mediated Amplification This assay detects E6/E7 viral messenger RNA (mRNA) from 14 high-risk HPV types (16,18,31,33,35,39,45,51,52,56,58,59,66,68). Cervical sources are required for HPV testing. If a vaginal source from a patient who has had a total hysterectomy with removal of cervix was submitted, please contact the testing laboratory for alternative testing options. For additional information, please refer to [email or web address]/faq/YWK755y1 (This link if provided for information/ educational purposes only.) Test Performed at: [facility] [address] [place] [address] [facility] Genital SWAB OF ENDOCERVIX / Unknown 05/07/2024 11:41 AM MEDICAL DOCTOR NUCLEAR MEDICINE 05/08/2024 1:15 AM MEDICAL DOCTOR NUCLEAR MEDICINE us Brian Ron MD PATHOLOGY/CYTOLOGY ORDERABLES Final Result [facility] [phone] [facility] [address] [place] [address] from Last 3 Months or Most Recently Relevant to Health Maintenance Insurance [facility] OPT[employer] PPO [id number] RX [employer] RX Member Subscriber Plan / Payer (Ef fective 2024-Present) Name:Shonda Grayson Relation to Subscriber:Not on file Name:Shonda Grayson Subscriber ID:Not on file Date of :1990 Payer ID:Not on file Group ID:[id number] Type:RX Commercial Address: [address] Advance Directives For more information, please contact: [phone] * Full Code (Latest Code Status on File) Date Activated Date Inactivated Comments 03/25/2024 6:04 AM 03/27/2024 4:39 PM * Full Code Date Activated Date Inactivated Comments 03/24/2024 4:21 PM 03/25/2024 6:03 AM * Full Code Date Activated Date Inactivated Comments 02/15/2024 2:36 PM 02/15/2024 6:35 PM * Full Code Date Activated Date Inactivated Comments 12/26/2023 4:38 AM 12/26/2023 10:24 AM Care Teams Groutman Relationship Specialty Start Date End Date Stephanie Coelho MD PCP - General Internal Medicine 05/06/13
--- OUTSIDE RECORDS SUMMARY | 2024-11-25 10:18 | XMS_ITS | Clinical Summary ---
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 Local care [...] on file Legal Sex Female 3:58 AM FITTER'S ASSISTANT Gender Identity Not on file Sexual Orientation Not on file Obstetrics History Last Filed Vital Signs Vital Sign Reading Time Taken Comments Blood Pressure 100/64 02/05/2023 8:08 AM FITTER'S ASSISTANT Pulse 74 02/05/2023 8:08 AM FITTER'S ASSISTANT Temperature 36.6 C (97.9 F) 02/05/2023 8:08 AM FITTER'S ASSISTANT Respiratory Rate 16 02/05/2023 8:08 AM FITTER'S ASSISTANT Oxygen Saturation 97% 02/05/2023 8:08 AM FITTER'S ASSISTANT Inhaled Oxygen Concentration - - Weight 64 kg (141 lb) 02/05/2023 8:08 AM FITTER'S ASSISTANT Height 162.6 cm (5' 4) 02/05/2023 8:08 AM FITTER'S ASSISTANT Body Mass Index 24.2 02/05/2023 8:08 AM FITTER'S ASSISTANT Plan of Treatment Health Maintenance Due Date Last Done Comments Cervical Cancer Screening 1990 Hepatitis C Screening 1990 Depression Screening 02/06/2024 02/05/2023 Regular Well Visit/Exam 18-64 02/06/2024 02/05/2023 Covid-19 Vaccine ( season) 2024 03/12/2020, 02/20/2020 Influenza Vaccine (#1) 2024 , 12/19/2019, 12/03/2017, Additional history exists DTaP/Tdap/Td Vaccine (4 - Td or Tdap) 05/15/2026 05/15/2016, 09/12/2006, 09/12/2006 Hepatitis B Screening Completed 10/17/1993 , [birth year] HPV Vaccines Completed 05/08/2007, 10/03, 09/12/2006 Pneumococcal vaccine <65 Aged Out No longer eligible based on patient's age to complete this topic Varicella Vaccines Discontinued Insurance CHOICE PLUS [facility] CHOICE PLUS Care Teams Curriculum Consultant Relationship Specialty Start Date End Date Masoud Torres Jr., MD [address] [place] [id number] PCP - General Internal Medicine 02/05/23
== END 2024-11-25 09:59 | disposition home or self-care (01) ==
PROVIDERS: PCP Hospitalist
DX: J01.90 Acute sinusitis, unspecified (principal)
CPT/HCPCS: 99213; G0463

== ENCOUNTER 2024-12-18 08:22 | Emergency (ER) | payer BC, OTHER, SELFPAY ==
[2024-12-18 08:26] VITALS: BP 103/69; PULSE 67; RESP 24; TEMP 36.3; O2SAT 99
--- OUTSIDE RECORDS SUMMARY | 2024-12-18 08:32 | XMS_ITS | Clinical Summary ---
Author Organization [facility] Address [address] [place] [address] Lab Technician Name Role Phone Melissa Cortez MD, Masoud Dumont Primary Care Pro vider Allergies Active Allergy Reactions Criticality Noted Date Comments Sulfamethoxazole-Trimethoprim Rash Low 2023 Medications cyclobenzaprine (FLEXERIL) 10 MG tablet Take 1 tablet (10 mg total) by mouth 3 (three) times daily as needed for Muscle Spasms. Active Senna (SENOKOT) 8.6 MG tablet Take 1 tablet (8.6 mg total) by mouth daily. Active pantoprazole EC (PROTONIX) 20 MG tablet Take 1 tablet (20 mg total) by mouth daily. Active metoclopramide (REGLAN) 5 MG tablet Take 2 tablets (10 mg total) by mouth 4 (four) times daily. Active melatonin 5 MG tablet Take 1 tablet (5 mg total) by mouth nightly as needed. Active Active Problems No known active problems Resolved Problems Problem Noted Date Diagnosed Date Resolved Date Encounter for physical examination 08/05/2019 11/14/2019 Immunizations Immunization Administration Dates Next Due DTaP (Daptacel) 09/12/2006 HPV4 (Gardasil) 05/08/2007,10/17/2006,09/12/2006 Hepatitis B (Generic: Adult) 10/17/1993,11/18/18 92,1990 Influenza (Generic) 12/03/2017,02/02/2013 Influenza Adult (Generic) 12/19/2019 MMR 10/23/1997,12/09/1992 Menactra 09/23/2015 PFIZER COVID-19 (ORIGINAL FO RMULATION, PURPLE CAP) mRNA, LNP-S, PF, 30 MCG/0.3 ML DOSE 03/12/2020,02/20/2020 Tdap (Generic) 05/15/2016,09/12/2006,09/12/2006 Family History Medical History Relation Comments Arthritis Father Hypertension Father hypothyroidism Father SD Maternal Grandfather cardiovascular disease Maternal Grandfather Stroke Maternal Grandmother Lung Cancer Paternal Grandfather Glaucoma Sister Relation Status Comments Father Alive Maternal Grandfather Maternal Grandmother Mother Alive Paternal Grandfather Sister Alive Social History Tobacco Use Types Packs/Day Years Used Date Smoking Tobacco: Never Smokeless Tobacco: Never Tobacco Cessation:Counseling Given: No Alcohol Use Standard Drinks/Week Comments Not Currently 1 (1 standard drink = 0.6 oz pur e alcohol) rarely [id number] Health Literacy Answer Date Recor ded How often do you need to hav e someone help you when you read instructions, pamphlets, or other written material from your doctor or pharmacy? Never 01/25/2024 [facility] Utilities Answer Date Recorded In the past 12 months has e IMT ([employer]), gas, oil, or water [employer] threatened to shut off services in your home? No 01/25/2024 Humiliation, Afraid, Rape, and Kick questionnair e Answer Date Recorded Within the last year, have y ou been afraid of your partner or ex-partner? No 01/25/2024 Within the last year, have y ou been humiliated or emotionally abused in other ways by your partner or ex-partner? No Within the last year, have y ou been kicked, hit, slapped, or otherwise physically hurt by your partner or ex-partner? No 01/25/2024 Within the last year, have y ou been raped or forced to have any kind of sexual activity by your partner or ex-partner? No 01/25/2024 Social Connection and Isolation Panel Answer Date Recorded In a typical week, how many times do you talk on the phone with family, friends, or neighbors? More than three times a week 01/25/2024 How often do you get togethe r with friends or relatives? More than three times a week 01/25/2024 How often do you attend chur ch or pentecostalism services? Never 01/25/2024 Do you belong to any clubs o r organizations such as uatsdin groups, unions, fraternal or athletic groups, or school groups? No 01/25/2024 How often do you attend meet ings of the clubs or organizations you belong to? Never 01/25/2024 Are you , , di vorced, , never , or living with a partner? 01/25/2024 AUDIT-C Answer Date Recorded Q1: How often do you have a drink containing alcohol? Never 01/25/2024 Q2: How many drinks containi ng alcohol do you have on a typical day when you are drinking? Patient does not drink Q3: How often do you have si x or more drinks on one occasion? Never 01/25/2024 Overall Financial Resource Strain (CARDIA) Answe r Date Recorded How hard is it for you to pa y for the very basics like food, housing, medical care, and heating? Not hard at all 01/25/2024 PHQ-2 Answer Date Recorded PHQ-2 Score - If the patient scores above 3, please move on to questions 3-9 0 06/18/2020 [facility] - Occupational Stress Questionnaire Answer Date Recorded Do you feel stress - tense, restless, nervous, or anxious, or unable to sleep at night because your mind is troubled all the time - these days? To some extent 01/25/2024 Exercise Vital Sign Answer Date Recorde d On average, how many days pe r week do you engage in moderate to strenuous exercise (like a brisk walk)? 3 days 01/25/2024 On average, how many minutes do you engage in exercise at this level? 60 min 01/25/2024 Hunger Vital Sign Answer Date Recorded Within the past 12 months, y ou worried that your food would run out before you got the money to buy more. Never true 01/25/20 24 Within the past 12 months, t he food you bought just didn't last and you didn't have money to get more. Never true 01/25/2024 PRAPARE - Transportation Answer Date Re corded In the past 12 months, has l ack of transportation kept you from medical appointments or from getting medications? No 01/04 In the past 12 months, has l ack of transportation kept you from meetings, work, or from getting things needed for daily living? No 01/25/2024 Housing Stability Vital Sign Answer Elisoe e Recorded In the last 12 months, was t here a time when you were not able to pay the mortgage or rent on time? No 01/25/2024 In the past 12 months, how m any times have you moved where you were living? 0 01/25/2024 At any time in the [facility] were you homeless or living in a fpc (including now)? No 01/25/2024 Comments No Sex and Gender Information Value Date Recorded Sex Assigned at Not on file Legal Sex Female 7:51 PM CDT Gender Identity Not on file Sexual Orientation Not on file Last Filed Vital Signs Vital Sign Reading Time Taken Comments Blood Pressure 109/68 02/15/2024 5:30 AM FABRIC SEPARATOR OPERATOR Pulse 100 02/15/2024 5:35 AM FABRIC SEPARATOR OPERATOR Temperature 36.7 C (98.1 F) 02/15/2024 3:00 AM FABRIC SEPARATOR OPERATOR Respiratory Rate 16 02/15/2024 3:00 AM FABRIC SEPARATOR OPERATOR Oxygen Saturation 100% 02/15/2024 3:00 AM FABRIC SEPARATOR OPERATOR Inhaled Oxygen Concentration - - Weight 69.9 kg (154 lb) 01/25/2024 7:50 PM FABRIC SEPARATOR OPERATOR Height 162.6 cm (5' 4) 01/25/2024 7:50 PM FABRIC SEPARATOR OPERATOR Body Mass Index 26.43 01/25/2024 7:50 PM FABRIC SEPARATOR OPERATOR Plan of Treatment Health Maintenance Due Date Last Done Comments Hepatitis C 09/01/2009 Cervical Cancer Screening Pap with HPV Testing (Age 30 to 64) Every 5 Years 09/01/2021 Annual Physical 07/25/2022 07/25/2021, 06/18/2020 Cervical Cancer Screening Pap Smear (Age 30 to 64) Every 3 Years 06/19/2023 06/18/2020 Cervical Cancer Screening with HPV 06/19/2023 PHQ-2 (Physician Gilbert) 03/05/2024 COVID-19 Vaccine ( season) 2024 03/12/2020, 02/20/2020 Influenza Adult (#1) 2024 11/12/2023, 12/12/2022, 12/19/2019, Additional history exists DTaP, Tdap and Td Vaccines (4 - Td or Tdap) 01/10/2034 01/11/2024, 05/15/2016, 09/12/2006, Additional history exists Hepatitis B Vaccines Completed 10/17/1993, 1990, 1990 HPV Vaccines Completed 05/08/2007, 10/03, 09/12/2006 Meningococcal Vaccine Aged Out 09/23/2015 No lewis levar eligible based on patient's age to complete this topic Meningococcal B Vaccine Aged Out No l onger eligible based on patient's age to complete this topic Pneumococcal Vaccine: Pediatrics (0 to 5 Years) and At-Risk Patients (6 to 49 Years) Aged Out No longer eligible based on patient's age to complete this topic RSV Immunizations Under 20 Months Aged Out No longer eligible based on patient's age to complete this topic Procedures Procedure Name Priority Date/Time Associated Diagnosis Comments CYTOPATH CERV/VAG THIN LAYER Routine 06/18/2020 6:58 AM CDT from Last 3 Months or Most Recently Relevant to Health Maintenance Results * Cytopath Cerv/Vag Thin Layer (06/18/2020 6:58 AM CDT) THIN PREP PAP [address] [address] Department of Pathology Pathology Report CERVICAL/VAGINAL PAP SMEAR REPORT Name: HERMILA GONSALES Age: 6 1990 (Age: 29) Location: [facility] Sex: F Collected Date: 06/18/2020 [facility] #: [id number] Date Received: 06/22/2020 Date Reported: 06/24/2020 Provider: EBEN NORWOOD MD INTERPRETATION CERVICAL/ENDOCERVI HEAVEN: SATISFACTORY FOR EVALUATION. ENDOCERVICAL/TRANS FORMATION ZONE COMPONENT ABSENT. NEGATIVE FOR INTRAEPITHELIAL LESION OR MALIGNANCY. Electronically Signed Out By DEWAYNE Carpenter (ASCP) CLINICAL HISTORY Z12.4 SCREENING PAP TEST ThinPrep Pap Test with HR HPV testing in patient > 21 years with ASC-US diagnosis. Date of Last Menstrual Period: 06/13/20 Menstrual Status: Regular Contraceptive History: Hormonal SPECIMEN SUBMITTED CERVICAL/ENDOCERVI HEAVEN Specimen Received:1 Thin Prep Vial, Image Assisted Pap (SMD) Please note: The Pap smear is not a diagnostic test. It is a screening test. Negative results on combined screening (Pap test and HPV-DNA) have a high negative predictive value (99.1-100 percent) for cervical cancer. The pap test is not effective in detecting cervical adenocarcinoma. [facility] 06/18/2020 6:58 AM CDT 06/22/2020 6:58 AM CDT Comment:CERVICAL/ENDOCERVICA L us Eben Norwood MD PATHOLOGY/CYTOLOGY ORDERABLES Fi nal Result Performing Organization Address City/State/[facility] Co de Phone Number [facility] [address] [place] [address], [id number] [facility] [address] [place] [address], from Last 3 Months or Most Recently Relevant to Health Maintenance Insurance Care Teams Rd Lab Technician Relationship Specialty Start Date End Date Masoud Torres Jr., MD [address] [place] [address] [id number] PCP - General HOSPITALIST 02/15/24
--- OUTSIDE RECORDS SUMMARY | 2024-12-18 08:32 | XMS_ITS | Encounter Summary ---
Author Organization [facility] Address [address] [place] [address] Care Team Providers Care Pastrycook Name Role Phone Celestina Mancera MD Primary Care Provider [phone] Melissa Cortez MD, Masoud Dumont Primary Care Pro vider Encounter Details Date Type Department Care Team (Late st Contact Info) Description 09/15/2020 MyChart Message Enc [facility] Multispecialty Care [address] [address] [place] [address] [place] [id number] RE: Medication Questions Social History Tobacco Use Types Packs/Day Years Used Date Smoking Tobacco: Never Smokeless Tobacco: Never Alcohol Use Standard Drinks/Week Comments Yes 0 (1 standard drink = 0.6 oz pur e alcohol) rarely AUDIT-C Answer Date Recorded Frequency of Alcohol Consumption Monthly or less 08/05/2019 Average Number of Drinks 3 or 4 020 Frequency of Binge Drinking Less than monthly PHQ-2 Answer Date Recorded PHQ-2 Score - If the patient scores above 3, please move on to questions 3-9 0 06/18/2020 Comments No Sex and Gender Information Value Date Recorded Sex Assigned at Not on file Legal Sex Female 7:51 PM CDT Gender Identity Not on file Sexual Orientation Not on file documented as of this encounter Plan of Treatment Not on file documented as of this encounter Visit Diagnoses Not on filedocumented in this encounter Care Teams Pastrycook Relationship Specialty Start Date End Date Celestina Mancera MD [address] [place] [address] PCP - General FAMILY PRACTICE 06/18/20 02/14/24 Masoud Torres Jr., MD [address] [place] [address] [id number] PCP - General HOSPITALIST 02/15/24 documented as of this encounter
--- OUTSIDE RECORDS SUMMARY | 2024-12-18 08:32 | XMS_ITS | Clinical Summary ---
Author Organization [facility] Address [address] [place] [address] Phone Care Team Providers Care Laboratory Development Technician Name Role Phone Stephanie Coelho MD Primary Care Provider [phone] Allergies Active Allergy Reactions Criticality Noted Date [...] Encounters Date Type Department Care Team Description 12/16/2024 External Device Data STL ABSTRACTION Provider, Abstract 11/11/2024 External Device Data STL ABSTRACTION Provider, [...] Comments Blood Pressure 108/72 05/07/2024 11:16 AM UNLOADING CHECKER Pulse 74 03/27/2024 6:56 AM UNLOADING CHECKER Temperature 36.7 C (98 F) 03/27/2024 6:56 AM UNLOADING CHECKER Respiratory Rate 18 03/27/2024 6:56 AM UNLOADING CHECKER Oxygen Saturation 99% 03/27/2024 6:56 AM UNLOADING CHECKER Inhaled Oxygen Concentration - - Weight 68 kg (150 lb) 05/07/2024 11:16 AM UNLOADING CHECKER Height 162.6 cm (5' 4) 05/07/2024 11:16 AM UNLOADING CHECKER Body Mass Index 25.75 05/07/2024 11:16 AM UNLOADING CHECKER Plan of Treatment Health Maintenance Due Date [...] BASED SCREEN PAP Routine 05/07/2024 11:41 AM UNLOADING CHECKER Screening for cervical cancer Screening for HPV (human papillomavirus) from Last 3 Months or Most Recently Relevant to Health Maintenance Results * CERV/VAG CYTO AGE BASED SCREEN PAP (05/07/2024 11:41 AM UNLOADING CHECKER) COMMENT (PAP): [facility] [place] Comment: This order for age-based cervical cancer and STI screening follows ACOG guidelines(PB 168, 140, VKC493). See individual assays for performing site location. CLINICAL INFORMATION [facility] [place] Comment:None given LAST MENSTRUAL PERIOD [facility] [place] Comment:NONE GIVEN PREV PAP: [facility] [place] Comment:NONE GIVEN PREV BX: [facility] [place] Comment:NONE GIVEN SOURCE [facility] [place] Comment:Endocervix ADEQUACY: [facility] [place] Comment: Satisfactory for evaluation. Endocervical/transformation zone component present. Age and/or menstrual status not provided PAP INTERP [facility] [place] Comment: Cytology Results: Negative for intraepithelial lesion or malignancy. COMMENT (PAP TEST) [facility] [place] Comment: This Pap test has been evaluated with computer assisted technology. ROOFER APPRENTICE: Kendy est [facility]- [place] Comment: LMT, CT(ASCP) CT screening location: [place] [address] Administration [facility] REVIEW ROOFER APPRENTICE: Michael Portillo Comment: MVB, CT(ASCP) CT Screening Location: [place] [address] Administration [facility] EXPLANATORY NOTE Que st Laurence Portillo Comment: EXPLANATORY NOTE: The Pap [...] Not Detected [facility] [place] Comment: Methodology: Business Insight And Analytics Manager-Mediated Amplification This assay detects E6/E7 viral messenger RNA (mRNA) from 14 high-risk HPV types (16,18,31,33,35,39,45,51,52,56,58,59,66,68). Cervical sources are required for HPV testing. If a vaginal source from a patient who has had a total hysterectomy with removal of cervix was submitted, please contact the testing laboratory for alternative testing options. For additional information, please refer to http://education.Polyplex/faq/JIX376f3 (This link if provided for information/ educational purposes only.) Test Performed at: [facility] [address] [address] [phone] [employer] Genital SWAB OF ENDOCERVIX / Unknown 05/07/2024 11:41 AM UNLOADING CHECKER 05/08/2024 1:15 AM UNLOADING CHECKER Brian Ron MD PATHOLOGY/CYTOLOGY ORDERABLES Final Result [facility] [phone] [facility] [address] [address] [phone] from Last 3 Months or Most Recently Relevant to Health Maintenance Insurance [facility] OPTIONS PPO [id number] RX OPT[employer] RX Member Subscriber Plan / Payer (Ef fective 2024-Present) Name:Shonda Grayson Relation to Subscriber:Not on file Name:Shonda Grayson Subscriber ID:Not on file Date of :1990 Payer ID:Not on file Group ID:[id number] Type:RX Commercial Address: [address] Advance Directives For more information, please contact: [phone] * Full Code (Latest Code Status on File) Date Activated Date Inactivated Comments 03/25/2024 6:04 AM 03/27/2024 4:39 PM * Full Code Date Activated Date Inactivated Comments 03/24/2024 4:21 PM 03/25/2024 6:03 AM * Full Code Date Activated Date Inactivated Comments 02/15/2024 2:36 PM 02/15/2024 6:35 PM * Full Code Date Activated Date Inactivated Comments 12/26/2023 4:38 AM 12/26/2023 10:24 AM Care Teams Laboratory Development Technician Relationship Specialty Start Date End Date Stephanie Coelho MD PCP - General Internal Medicine 05/06/13
--- OUTSIDE RECORDS SUMMARY | 2024-12-18 08:32 | XMS_ITS | Clinical Summary ---
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 Local care [...] on file Legal Sex Female 3:58 AM DIRECTOR OF GRADUATE MEDICAL EDUCATION Gender Identity Not on file Sexual Orientation Not on file Obstetrics History Last Filed Vital Signs Vital Sign Reading Time Taken Comments Blood Pressure 100/64 02/05/2023 8:08 AM DIRECTOR OF GRADUATE MEDICAL EDUCATION Pulse 74 02/05/2023 8:08 AM DIRECTOR OF GRADUATE MEDICAL EDUCATION Temperature 36.6 C (97.9 F) 02/05/2023 8:08 AM DIRECTOR OF GRADUATE MEDICAL EDUCATION Respiratory Rate 16 02/05/2023 8:08 AM DIRECTOR OF GRADUATE MEDICAL EDUCATION Oxygen Saturation 97% 02/05/2023 8:08 AM DIRECTOR OF GRADUATE MEDICAL EDUCATION Inhaled Oxygen Concentration - - Weight 64 kg (141 lb) 02/05/2023 8:08 AM DIRECTOR OF GRADUATE MEDICAL EDUCATION Height 162.6 cm (5' 4) 02/05/2023 8:08 AM DIRECTOR OF GRADUATE MEDICAL EDUCATION Body Mass Index 24.2 02/05/2023 8:08 AM DIRECTOR OF GRADUATE MEDICAL EDUCATION Plan of Treatment Health Maintenance Due Date [...] topic Varicella Vaccines Discontinued Insurance [facility] H[facility]/PPO Address: [address] [address] [place] [address] [facility] H[facility]/PPO Address: [place] [address] Care Teams Aquatic Laborer Relationship Specialty Start Date End Date Masoud Torres Jr., MD [address] [place] [id number] PCP - General Internal Medicine 02/05/23
--- OUTSIDE RECORDS SUMMARY | 2024-12-18 08:32 | XMS_ITS | Encounter Summary ---
Author Organization [facility] Address [address] [place] [address] Care Team Providers Care Family Service Worker Name Role Phone Stephanie Coelho MD Primary Care Provider [phone] Encounter Details Date Type Department Care Team (Late st Contact Info) Description 12/16/2024 External Device Data STL ABSTRACTION [...] on filedocumented in this encounter Care Teams Family Service Worker Relationship Specialty Start Date End Date Stephanie Coelho MD PCP - General Internal Medicine 05/06/13 documented as of this encounter
--- OUTSIDE RECORDS SUMMARY | 2024-12-18 08:32 | XMS_ITS | Encounter Summary ---
Author Organization [facility] - [facility] Address [address] [place] [address] Care Team Providers Care Superintendent Car Construction Name Role Phone Celestina Mancera MD Primary Care Provider [phone] Melissa Cortez MD, Masoud Dumont Primary Care Pro vider Encounter Details Date Type Department Care Team (Late st Contact Info) Description 09/04/2020 MyChart Message Enc [facility] Medical Group Multispecialty Care [address] [address] [place] [address] [place] [address] RE: Medication Questions Social History Tobacco [...] on filedocumented in this encounter Care Teams Superintendent Car Construction Relationship Specialty Start Date End Date Celestina Mancera MD [address] [place] [address] PCP - General FAMILY PRACTICE 06/18/20 02/14/24 Masoud Torres Jr., MD [address] [place] [address] [id number] PCP - General HOSPITALIST 02/15/24 documented as of this encounter
--- NOTE | 2024-12-18 08:37 | ED_ITS ---
HPI - Female Genitourinary General Chief complaint: Urogenital-Female Stated complaint: UTI Time Seen by Provider: 12/18/24 08:37 Source: patient Mode of arrival: ambulatory Limitations: no limitations History of Present Illness HPI Narrative: 34-year-old female presents with complaint burning with urination and frequency started this morning. Unsure of , states she is on control but missed a period. Denies nausea vomiting. All systems reviewed and negative except as noted above. Related Data Home Medications ?Medication ?Instructions ?Recorded ?Confirmed ?Last Taken ?Type norethindrone (contraceptive) 0.35 mg 08/21/24 Unknow n History mg tablet Allergies Allergy/AdvReac Type Severity Reaction Status Date / Time sulfamethoxazole (From Allergy Rash Verified 12/18/24 08:33 Bactrim) trimethoprim (From Bactrim) Allergy Rash Verified 12/18/24 08:33 PMFSH Comments At time of signature, agree with nursing past medical, surgical, social and family history. There is no relevant family history pertinent to the presenting complaint. Exam Narrative: GENERAL: This is a well-nourished, well-developed patient, in no apparent distress. HEAD: normocephalic, atraumatic. EYES: PERRL. Sclera clear/white. Vision is grossly intact. EARS: External ears normal NOSE: External nose normal NECK: Neck supple, non-tender without lymphadenopathy, masses or thyromegaly. CARDIOVASCULAR: Regular rate and rhythm without murmurs, gallops, or rubs. RESPIRATORY: Clear to auscultation. Breath sounds equal bilaterally. No wheezes, rales, or rhonchi. SKIN: warm, Dry, intact with no suspicious lesions or rash, good texture and turgor. NEURO: awake, alert, and oriented to person, place and time. There were no obvio us focal neurologic abnormalities. EXTREMITIES: No joint tenderness, effusion, or edema noted. Course Course Level of Care: Express Care Visit Vital Signs Vital signs: Vital Signs Temperature 36.3 C L 12/18/24 08:26 Pulse Rate 67 12/18/24 08:26 Respiratory Rate 24 H 12/18/24 08:26 Blood Pressure 103/69 12/18/24 08:26 Pulse Oximetry 99 12/18/24 08:26 Oxygen Delivery Room Air 12/18/24 08:26 Temperature 36.3 C L 12/18/24 08:26 Pulse Rate 67 12/18/24 08:26 Respiratory Rate 24 H 12/18/24 08:26 Blood Pressure 103/69 12/18/24 08:26 Pulse Oximetry 99 12/18/24 08:26 Oxygen Delivery Room Air 12/18/24 08:26 Reviewed MDM - Female Genitourinary MDM Narrative Medical decision making narrative: urinalysis 3+ leukocytes, 3+ blood. Urine culture ordered. Patient is well- appearing, nontoxic. Differential Diagnosis Differential diagnosis: Likely urinary tract infection Discharge Plan Discharge Clinical Impression: Urinary tract infection, Urine test negative Patient Disposition: Home Condition: Stable Instructions: Antibiotic Form, Urinary Tract Infection in Women (ED) Additional Instructions: Take antibiotic as prescribed until gone. Drink at least 64 oz water a day. See your primary care physician if symptoms are not improving. Patient Language: Stateless Prescriptions: New amoxicillin-pot clavulanate [Augmentin] 500-125 mg tablet 1 tablet PO BID 5 Days Qty: 10 0RF No Action norethindrone (contraceptive) 0.35 mg tablet Follow-up/Referrals: Melissa,Masoud James Jr., MD [Primary Care Provider, Unknown] Time of Disposition: 08:43
[2024-12-18 08:43] LABS: EDUAAPPEAR Cloudy; EDUABILI Negative (Negative); EDUABLOOD 3+ (Negative); EDUACOLOR1 Yellow; EDUAGLUCOSE Negative (Negative); EDUAKETONE Negative (Negative); EDUALEUKO 3+ (Negative); EDUANITRATE Negative (Negative); EDUAPH 5.5; EDUAPROTEIN Negative (Negative); EDUASPGRAVITY 1.015; EDUAUROBILI 0.2
[2024-12-18 08:55] LABS: BEDSIDEPREGUCG Negative (Negative)
--- NOTE | 2024-12-24 08:26 | ED_ITS ---
<Statement entered by Kali Matt, MEDICAL/SURGERY REGISTERED NURSE - 12/24/24 08:27> Pt called stating that she completed her abx, was feeling better but sx have since returned--advised to come to [facility] or f/u with PCP for eval HPI - General Adult General Chief complaint: Urogenital-Female Stated complaint: UTI Time Seen by Provider: 12/18/24 08:37 Source: patient Mode of arrival: ambulatory Limitations: no limitations Related Data Home Medications ?Medication ?Instructions ?Recorded ?Confirmed ?Last Taken ?Type norethindrone (contraceptive) 0.35 mg 08/21/24 Unknow n History mg tablet Allergies Allergy/AdvReac Type Severity Reaction Status Date / Time sulfamethoxazole (From Allergy Rash Verified 12/24/24 08:18 Bactrim) trimethoprim (From Bactrim) Allergy Rash Verified 12/24/24 08:18 Course Course Level of Care: Express Care Visit Vital Signs Vital signs: Vital Signs Temperature 97.3 F L 12/18/24 08:26 Pulse Rate 67 12/18/24 08:26 Respiratory Rate 24 H 12/18/24 08:26 Blood Pressure 103/69 12/18/24 08:26 Pulse Oximetry 99 12/18/24 08:26 Oxygen Delivery Room Air 12/18/24 08:26 Temperature 97.3 F L 12/18/24 08:26 Pulse Rate 67 12/18/24 08:26 Respiratory Rate 24 H 12/18/24 08:26 Blood Pressure 103/69 12/18/24 08:26 Pulse Oximetry 99 12/18/24 08:26 Oxygen Delivery Room Air 12/18/24 08:26 Medical Decision Making Vital Signs Vital Signs: Vital Signs Temperature 97.3 F L 12/18/24 08:26 Pulse Rate 67 12/18/24 08:26 Respiratory Rate 24 H 12/18/24 08:26 Blood Pressure 103/69 12/18/24 08:26 Pulse Oximetry 99 12/18/24 08:26 Oxygen Delivery Room Air 12/18/24 08:26 Temperature 97.3 F L 12/18/24 08:26 Pulse Rate 67 12/18/24 08:26 Respiratory Rate 24 H 12/18/24 08:26 Blood Pressure 103/69 12/18/24 08:26 Pulse Oximetry 99 12/18/24 08:26 Oxygen Delivery Room Air 12/18/24 08:26 Lab Data Labs: Lab Results 12/18/24 12/18/24 Range/Units 08:41 08:54 POC Urine Color Yellow POC Urine Clarity Cloudy POC Urine pH 5.5 POC Ur Specif [place] 1.015 POC Urine Protein Negative (Negative) POC Ur Glucose (UA) Negative (Negative) POC Urine Ketones Negative (Negative) POC Urine Blood 3+ (Negative) POC Urine Nitrite Negative (Negative) POC Urine Bilirubin Negative (Negative) POC Urine Urobilinogen 0.2 POC U Leukocyte Esteras 3+ (Negative) POC Urine HCG, Qual Negative (Negative) Discharge Plan Discharge Clinical Impression: Urinary tract infection, Urine test negative Patient Disposition: Home Condition: Stable Instructions: Antibiotic Form, Urinary Tract Infection in Women (ED) Additional Instructions: Take antibiotic as prescribed until gone. Drink at least 64 oz water a day. See your primary care physician if symptoms are not improving. Patient Language: Uzbek Prescriptions: No Action norethindrone (contraceptive) 0.35 mg tablet Follow-up/Referrals: Melissa,Masoud James Jr., MD [Primary Care Provider, Unknown] Time of Disposition: 08:43
== END 2024-12-18 08:46 | disposition home or self-care (01) ==
PROVIDERS: Emergency Provider Nurse Practitioner Family; PCP Hospitalist
DX: N39.0 Urinary tract infection, site not specified (principal); Z32.01 Encounter for pregnancy test, result positive
CPT/HCPCS: 81003; 81025; 87077; 87086; 87186; 99213; G0463

== ENCOUNTER 2024-12-24 08:15 | Emergency (ER) | payer OTHER, SELFPAY ==
[2024-12-24 08:23] VITALS: BP 107/66; PULSE 65; RESP 18; TEMP 36.6; O2SAT 98
--- OUTSIDE RECORDS SUMMARY | 2024-12-24 08:27 | XMS_ITS | Encounter Summary ---
Author Organization [facility] - [facility] Address [address] [place] [address] Care Team Providers Care Vinegar Maker Name Role Phone Celestina Mancera MD Primary Care Provider [phone] Melissa Cortez MD, Masoud Dumont Primary Care Pro vider Encounter Details Date Type Department Care Team (Late st Contact Info) Description 09/04/2020 MyChart Message Enc [facility] Medical Group Multispecialty Care [address] [address] [place] [address] [place] [address] RE: Medication Questions Social History Tobacco [...] on filedocumented in this encounter Care Teams Vinegar Maker Relationship Specialty Start Date End Date Celestina Mancera MD [address] [place] [address] PCP - General FAMILY PRACTICE 06/18/20 02/14/24 Masoud Torres Jr., MD [address] [place] [address] [id number] PCP - General HOSPITALIST 02/15/24 documented as of this encounter
--- OUTSIDE RECORDS SUMMARY | 2024-12-24 08:27 | XMS_ITS | Clinical Summary ---
Author Organization [facility] Address [address] [place] [address] Care Team Providers Care Claims Correspondence Clerk Name Role Phone Melissa Cortez MD, Masoud [...] Comments Arthritis Father Hypertension Father hypothyroidism Father [place] Maternal Grandfather cardiovascular disease Maternal Grandfather Stroke [...] from your doctor or pharmacy? Never 01/25/2024 [facility] Utilities Answer Date Recorded In the past 12 months has e [employer], gas, oil, or water [employer] threatened to shut off services in your [...] often do you attend chur ch or protestant services? Never 01/25/2024 Do you belong to any clubs o r organizations such as mosque groups, unions, fraternal or athletic groups, or [...] move on to questions 3-9 0 06/18/2020 [facility] - Occupational Stress Questionnaire Answer Date Recorded [...] No 01/25/2024 Housing Stability Vital Sign Answer Eliseo e Recorded In the last 12 months, was t here a time when you were not able to pay the mortgage or rent on time? No 01/25/2024 In the past 12 months, how m any times have you moved where you were living? 0 01/25/2024 At any time in the past 12 m [facility], were you homeless or living in a longterm (including now)? No 01/25/2024 Comments No Sex and Gender Information Value Date Recorded Sex Assigned at Not on file Legal Sex Female 7:51 PM CDT Gender Identity Not on file Sexual Orientation Not on file Last Filed Vital Signs Vital Sign Reading Time Taken Comments Blood Pressure 109/68 02/15/2024 5:30 AM CEMENT FINISHER APPRENTICE Pulse 100 02/15/2024 5:35 AM CEMENT FINISHER APPRENTICE Temperature 36.7 C (98.1 F) 02/15/2024 3:00 AM CEMENT FINISHER APPRENTICE Respiratory Rate 16 02/15/2024 3:00 AM CEMENT FINISHER APPRENTICE Oxygen Saturation 100% 02/15/2024 3:00 AM CEMENT FINISHER APPRENTICE Inhaled Oxygen Concentration - - Weight 69.9 kg (154 lb) 01/25/2024 7:50 PM CEMENT FINISHER APPRENTICE Height 162.6 cm (5' 4) 01/25/2024 7:50 PM CEMENT FINISHER APPRENTICE Body Mass Index 26.43 01/25/2024 7:50 PM CEMENT FINISHER APPRENTICE Plan of Treatment Health Maintenance Due Date Last Done Comments Hepatitis C 09/01/2009 Cervical Cancer Screening Pap with HPV Testing (Age 30 to 64) Every 5 Years 09/01/2021 Annual Physical 07/25/2022 07/25/2021, 06/18/2020 Cervical Cancer Screening Pap Smear (Age 30 to 64) Every 3 Years 06/19/2023 06/18/2020 Cervical Cancer Screening with HPV 06/19/2023 PHQ-2 (Physician [place]) 03/05/2024 COVID-19 Vaccine ( season) 2024 03/12/2020, [...] on patient's age to complete this topic Hepatitis A Vaccines Aged Out No long er eligible based on patient's age to complete [...] (06/18/2020 6:58 AM CDT) THIN PREP PAP [address] [address] Department of Pathology Pathology Report CERVICAL/VAGINAL PAP SMEAR REPORT Name: HERMILA GONSALES Age: 6 1990 (Age: 29) Location: [facility] Sex: F Collected Date: 06/18/2020 [facility] #: [id number] Date Received: 06/22/2020 Date Reported: 06/24/2020 Provider: [...] is not effective in detecting cervical adenocarcinoma. [facility] 06/18/2020 6:58 AM CDT 06/22/2020 6:58 AM CDT Comment:CERVICAL/ENDOCERVICA L us Eben Norwood MD PATHOLOGY/CYTOLOGY ORDERABLES [facility] Result Performing Organization Address City/State/[facility] Co de Phone Number [facility] [address] [place] [address], [place] [phone] [facility] [address] [place] [address], [place] [phone] from Last 3 Months or Most Recently Relevant to Health Maintenance Insurance Care Teams Claims Correspondence Clerk Relationship Specialty Start Date End Date Masoud Torres Jr., MD [address] [place] [id number] PCP - General HOSPITALIST 02/15/24
--- OUTSIDE RECORDS SUMMARY | 2024-12-24 08:27 | XMS_ITS | Clinical Summary ---
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 Local care [...] on file Legal Sex Female 3:58 AM HUMAN RESOURCES COORDINATOR Gender Identity Not on file Sexual Orientation Not on file Obstetrics History Last Filed Vital Signs Vital Sign Reading Time Taken Comments Blood Pressure 100/64 02/05/2023 8:08 AM HUMAN RESOURCES COORDINATOR Pulse 74 02/05/2023 8:08 AM HUMAN RESOURCES COORDINATOR Temperature 36.6 C (97.9 F) 02/05/2023 8:08 AM HUMAN RESOURCES COORDINATOR Respiratory Rate 16 02/05/2023 8:08 AM HUMAN RESOURCES COORDINATOR Oxygen Saturation 97% 02/05/2023 8:08 AM HUMAN RESOURCES COORDINATOR Inhaled Oxygen Concentration - - Weight 64 kg (141 lb) 02/05/2023 8:08 AM HUMAN RESOURCES COORDINATOR Height 162.6 cm (5' 4) 02/05/2023 8:08 AM HUMAN RESOURCES COORDINATOR Body Mass Index 24.2 02/05/2023 8:08 AM HUMAN RESOURCES COORDINATOR Plan of Treatment Health Maintenance Due Date [...] topic Varicella Vaccines Discontinued Insurance [facility] H[facility]/PPO Address: [address] [address] [place] [address] [facility]/PPO Address: [place] [address] Care Teams Scalping Machine Operator Relationship Specialty Start Date End Date Masoud Torres Jr., MD [address] [place] [id number] PCP - General Internal Medicine 02/05/23
--- OUTSIDE RECORDS SUMMARY | 2024-12-24 08:27 | XMS_ITS | Encounter Summary ---
Author Organization [facility] - [facility] Address [address] [place] [address] Care Team Providers Care Hydro Operator Name Role Phone Celestina Mancera MD Primary Care Provider [phone] Melissa Cortez MD, Masoud Dumont Primary Care Pro vider Encounter Details Date Type Department Care Team (Late st Contact Info) Description 09/15/2020 MyChart Message Enc [facility] Medical Group Multispecialty Care [address] [address] [place] [address] [place] [phone] RE: Medication Questions Social History Tobacco [...] on filedocumented in this encounter Care Teams Hydro Operator Relationship Specialty Start Date End Date Celestina Mancera MD [address] [place] [address] PCP - General FAMILY PRACTICE 06/18/20 02/14/24 Masoud Torres Jr., MD [address] [place] [address] [id number] PCP - General HOSPITALIST 02/15/24 documented as of this encounter
--- OUTSIDE RECORDS SUMMARY | 2024-12-24 08:28 | XMS_ITS | Clinical Summary ---
Author Organization [facility] Address [address] [place] [address] Phone Care Team Providers Care Iv Rn Name Role Phone Stephanie Coelho MD Primary Care Provider [phone] Allergies Active Allergy Reactions Criticality Noted Date [...] Tablet by mouth daily. 90 Tablet 3 5 Active Active Problems Problem Noted Date Diagnosed [...] Comments Blood Pressure 108/72 05/07/2024 11:16 AM WINDMILL TECHNICIAN Pulse 74 03/27/2024 6:56 AM WINDMILL TECHNICIAN Temperature 36.7 C (98 F) 03/27/2024 6:56 AM WINDMILL TECHNICIAN Respiratory Rate 18 03/27/2024 6:56 AM WINDMILL TECHNICIAN Oxygen Saturation 99% 03/27/2024 6:56 AM WINDMILL TECHNICIAN Inhaled Oxygen Concentration - - Weight 68 kg (150 lb) 05/07/2024 11:16 AM WINDMILL TECHNICIAN Height 162.6 cm (5' 4) 05/07/2024 11:16 AM WINDMILL TECHNICIAN Body Mass Index 25.75 05/07/2024 11:16 AM WINDMILL TECHNICIAN Plan of Treatment Health Maintenance Due Date Last Done Comments INFLUENZA VACCINE (#1) 2024 , 12/20/2022, 12/03/2017, Additional history exists COVID-19 Vaccine (2024-04 6 season) 2024 03/12/2020, 02/20/2020 PAP SMEAR [...] BASED SCREEN PAP Routine 05/07/2024 11:41 AM WINDMILL TECHNICIAN Screening for cervical cancer Screening for HPV (human papillomavirus) from Last 3 Months or Most Recently Relevant to Health Maintenance Results * CERV/VAG CYTO AGE BASED SCREEN PAP (05/07/2024 11:41 AM WINDMILL TECHNICIAN) COMMENT (PAP): [facility] [place] Comment: This order for age-based cervical cancer and STI screening follows ACOG guidelines(PB 168, 140, GMT031). See individual assays for performing site location. CLINICAL INFORMATION [facility] [place] Comment:None given LAST MENSTRUAL PERIOD [facility] [place] Comment:NONE GIVEN PREV PAP: [facility] [place] Comment:NONE GIVEN PREV BX: [facility] [place] Comment:NONE GIVEN SOURCE [facility] [place] Comment:Endocervix ADEQUACY: [facility] [place] Comment: Satisfactory for evaluation. Endocervical/transformation zone component present. Age and/or menstrual status not provided PAP INTERP [facility] [place] Comment: Cytology Results: Negative for intraepithelial lesion or malignancy. COMMENT (PAP TEST) [facility] [place] Comment: This Pap test has been evaluated with computer assisted technology. MANAGER BRAND: [employer] [place] Comment: LMT, CT(ASCP) CT screening location: [place] [address] [place] [address] REVIEW MANAGER BRAND: Michael adSageSha Portillo Comment: MVB, CT(ASCP) CT Screening Location: [place] [address] [address] [facility] EXPLANATORY NOTE [place] Laurence Portillo Comment: EXPLANATORY NOTE: The Pap [...] information. HPV E6/E7 Not Detected Not Detected [facility] [place] Comment: Methodology: Financial Planner-Mediated Amplification This assay detects E6/E7 viral messenger RNA (mRNA) from 14 high-risk HPV types (16,18,31,33,35,39,45,51,52,56,58,59,66,68). Cervical sources are required for HPV testing. If a vaginal source from a patient who has had a total hysterectomy with removal of cervix was submitted, please contact the testing laboratory for alternative testing options. For additional information, please refer to http://education.PearFunds/faq/DPX220w7 (This link if provided for information/ educational purposes only.) [facility] [address] [id number] [facility] SW[facility] OF ENDOCERVIX / Unknown 05/07/2024 11:41 AM WINDMILL TECHNICIAN 05/08/2024 1:15 AM WINDMILL TECHNICIAN us Brian Ron MD PATHOLOGY/CYTOLOGY ORDERABLES Final Result [facility] [phone] [facility] [place] [address] [id number] from Last 3 Months or Most Recently Relevant to Health Maintenance Insurance [facility] [address] [address] [facility] Address: [facility] [id number] [place] [address] RX [employer] RX Member Subscriber Plan / Payer (Ef fective 2024-Present) Name:Shonda Grayson Relation to Subscriber:Not on file Name:Shonda Grayson Subscriber ID:Not on file Date of :1990 Payer ID:Not on file Group ID:[id number] Type:RX Commercial Address: [address] Advance Directives For more information, please contact: [phone] * Full Code (Latest Code Status on File) Date Activated Date Inactivated Comments 03/25/2024 6:04 AM 03/27/2024 4:39 PM * Full Code Date Activated Date Inactivated Comments 03/24/2024 4:21 PM 03/25/2024 6:03 AM * Full Code Date Activated Date Inactivated Comments 02/15/2024 2:36 PM 02/15/2024 6:35 PM * Full Code Date Activated Date Inactivated Comments 12/26/2023 4:38 AM 12/26/2023 10:24 AM Care Teams Iv Rn Relationship Specialty Start Date End Date Stephanie Coelho MD PCP - General Internal Medicine 05/06/13
[2024-12-24 08:37] LABS: EDUAAPPEAR Clear; EDUABILI Negative (Negative); EDUABLOOD Negative (Negative); EDUACOLOR1 Yellow; EDUAGLUCOSE Negative (Negative); EDUAKETONE Negative (Negative); EDUALEUKO Trace (Negative); EDUANITRATE Negative (Negative); EDUAPH 5.5; EDUAPROTEIN Negative (Negative); EDUASPGRAVITY 1.010; EDUAUROBILI 0.2
--- NOTE | 2024-12-24 08:39 | ED.GENADULT ---
HPI - General Adult General Chief complaint: Urogenital-Female Stated complaint: UTI Source: patient Mode of arrival: ambulatory Limitations: no limitations History of Present Illness HPI narrative: Pt is a 34 y/o female presenting with c/o UTI sx. Sx reported include burning with urination. Sx began this morning. Was recently here (12/18) for same sx, given 5 days of Augmentin, culture resulted e coli with indeterminate susceptiblity, reported sx resolved but then returned as soon as she completed her abx. No concern for STI or . No additional complaints. Related Data Home Medications ?Medication ?Instructions ?Recorded ?Confirmed ?Last Taken ?Type norethindrone (contraceptive) 0.35 mg 08/21/24 Unknown History mg tablet Allergies Allergy/AdvReac Type Severity Reaction Status Date / Time sulfamethoxazole (From Allergy Rash Verified 12/24/24 08:18 Bactrim) trimethoprim (From Bactrim) Allergy Rash Verified 12/24/24 08:18 Review of Systems Review of Systems: CONSTITUTIONAL: Denies body aches, fever, chills, or sweats. EYES: Denies visual changes, redness, or discharge. ENT: Denies rhinorrhea, congestion, sore throat, or otalgia. CARDIOVASCULAR: Denies chest pain, palpitations, or edema. RESPIRATORY: Denies cough or dyspnea. GASTROINTESTINAL: Denies abdominal pain, nausea, vomiting, or diarrhea. GENITOURINARY: Reports dysuria denies hematuria. SKIN: Denies rash, itching, or wounds. MUSCULOSKELETAL: Denies back pain, joint pain, or myalgia. NEUROLOGIC: Denies headache, numbness, tingling, or weakness. PSYCH: Denies depression or anxiety. All systems reviewed & are unremarkable except as noted in HPI and below Exam Narrative: GENERAL: Well-appearing, well-nourished, and in no acute distress. HEAD: Normocephalic, atraumatic. EYES: EOMI. No redness or drainage. Conjunctivae normal. ENT: Mucous membranes pink and moist. NECK: Normal AROM. Supple. CHEST: No respiratory distress. HEART: Regular rate ABDOMEN: Soft, nontender, nondistended, normal active bowel sounds. no CVAT EXTREMITIES: Normal range of motion SKIN: Warm, dry, no rash. Capillary refill normal. Normal skin turgor. NEURO: No focal deficits. Alert and oriented x3. Gait steady. PSYCH: Normal affect. No signs of depression or anxiety. Course Course Level of Care: Express Care Visit Vital Signs Vital signs: Vital Signs Temperature 97.8 F 12/24/24 08:23 Pulse Rate 65 12/24/24 08:23 Respiratory Rate 18 12/24/24 08:23 Blood Pressure 107/66 12/24/24 08:23 Pulse Oximetry 98 12/24/24 08:23 Oxygen Delivery Room Air 12/24/24 08:23 Temperature 97.8 F 12/24/24 08:23 Pulse Rate 65 12/24/24 08:23 Respiratory Rate 18 12/24/24 08:23 Blood Pressure 107/66 12/24/24 08:23 Pulse Oximetry 98 12/24/24 08:23 Oxygen Delivery Room Air 12/24/24 08:23 Medical Decision Making Medical Records Medical records reviewed: Yes I reviewed the external patient's medical records. Vital Signs Vital Signs: Vital Signs Temperature 97.8 F 12/24/24 08:23 Pulse Rate 65 12/24/24 08:23 Respiratory Rate 18 12/24/24 08:23 Blood Pressure 107/66 12/24/24 08:23 Pulse Oximetry 98 12/24/24 08:23 Oxygen Delivery Room Air 12/24/24 08:23 Temperature 97.8 F 12/24/24 08:23 Pulse Rate 65 12/24/24 08:23 Respiratory Rate 18 12/24/24 08:23 Blood Pressure 107/66 12/24/24 08:23 Pulse Oximetry 98 12/24/24 08:23 Oxygen Delivery Room Air 12/24/24 08:23 Lab Data Lab results reviewed: Yes I reviewed the patient's lab results. Labs: Lab Results 12/24/24 Range/Units 08:34 POC Urine Color Yellow POC Urine Clarity Clear POC Urine pH 5.5 POC Ur Specif [place] 1.010 POC Urine Protein Negative (Negative) POC Ur Glucose (UA) Negative (Negative) POC Urine Ketones Negative (Negative) POC Urine Blood Negative (Negative) POC Urine Nitrite Negative (Negative) POC Urine Bilirubin Negative (Negative) POC Urine Urobilinogen 0.2 POC U Leukocyte Esteras Trace (Negative) Discharge Plan Discharge Clinical Impression: Dysuria Patient Disposition: Home Condition: Stable Instructions: Antibiotic Form Additional Instructions: Go straight to ER should your symptoms become worse or should any new symptoms develop Patient Language: Setswana Prescriptions: New nitrofurantoin monohyd/m-cryst [Macrobid] 100 mg capsule 100 mg PO Q12H 5 Days Qty: 10 0RF Rx Instructions: must administer with a meal/food No Action norethindrone (contraceptive) 0.35 mg tablet Follow-up/Referrals: Melissa,Masoud James Jr., MD [Primary Care Provider, Unknown] - 12/25/24 Time of Disposition: 08:40
== END 2024-12-24 08:43 | disposition home or self-care (01) ==
PROVIDERS: Emergency Provider Registered Nurse; PCP Hospitalist
DX: R30.0 Dysuria (principal)
CPT/HCPCS: 81003; 87077; 87086; 87186; 99213; G0463